=== PATIENT | male | born 1955 | race Caucasian/White ===

== ENCOUNTER 2018-01-24 13:08 | Emergency (ER) | payer OTHER, SELFPAY ==
[2018-01-24] VITALS (36 sets, daily range): BP systolic 110–153; BP diastolic 75–102; PULSE 83–108; RESP 8–32; TEMP 37; O2SAT 94–100
[2018-01-24 13:41] LABS: Abs Immature Grans 0.01 k/cumm (0.0-0.09); Absolute Basophil Count 0.02 k/cumm (0.0-0.2); Absolute Eosinophil Count 0.02 k/cumm (0.0-0.7); Absolute Lymphocyte Count 1.86 k/cumm (1.2-3.4); Absolute Neutrophil Count 4.68 k/cumm (1.2-6.7); Basophils % 0.3; Eosinophils % 0.3; HCT 43.2 % (40.0-50.0); HGB 15.8 g/dL (13.5-17.5); Immature Grans % 0.1; Lymphocytes % 25.5; Mean Corp. HGB Concentration 36.6 g/dL (32.0-36.0); Mean Corpuscular Hemoglobin 36.7 pg (27.0-33.0); Mean Corpuscular Volume 100.2 fL (80-95); Mean Platelet Volume 9.5 fL (8.0-11.0); Monocytes % 9.6; Neutrophils % 64.2; Platelet Count 220 x1000/uL (130-400); RBC 4.31 m/cumm (4.50-6.00); RBC Distribution Width 12.7 % (11.8-14.1); White Blood Cell Count 7.29 k/cumm (4.4-10.8)
--- NOTE | 2018-01-24 13:49 | DI.CT_ITS ---
SYMPTOMS/DIAGNOSIS: H/O PE/FACTOR V LEIDEN, ? PE PE CHEST CT: CT angiography was performed with multi slice acquisition and multi planar and 3D reconstruction. The study was conducted according to the usual protocol with an intravenous administration of 100 cc's of Omnipaque 350. There is no evidence of pulmonary embolic disease. There is no pulmonary infiltrate or mass or evidence of a hilar or mediastinal adenopathy. There are small regions of dependent atelectasis involving the lung bases. Apical pulmonary and pleural scarring is identified. There is no pleural effusion. The heart is not enlarged. There is no pericardial effusion. There is no evidence of an aortic aneurysm or dissection. No significant bony abnormality is demonstrated. SUMMARY: No evidence of pulmonary embolic disease. No evidence of acute cardiopulmonary disease.
[2018-01-24] MEDS: Acetaminophen 325 MG TAB 650 MG PO (13:56)
[2018-01-24 14:04] LABS: ALT 50 U/L (12-78); AST 61 U/L (15-37); Alkaline Phosphatase 75 U/L (46-116); Anion Gap 10.7 mmol/L (3-11); BUN 6 mg/dL (7-18); Bilirubin, Total 1.3 mg/dL (0.2-1.0); CO2 28.3 mmol/L (21.0-32.0); CREATININE 1.11 mg/dL (0.70-1.30); Calcium 8.8 mg/dL (8.5-10.1); Chloride 94 mmol/L (98-107); Glucose 108 mg/dL (70-100); Magnesium 1.5 mg/dL (1.8-2.4); Potassium 3.4 mmol/L (3.5-5.1); Sodium 133 mmol/L (136-145); Total Protein 7.6 g/dL (6.4-8.2)
[2018-01-24 14:06] LABS: Troponin I < 0.02 ng/mL (0.00-0.06)
[2018-01-24] MEDS: Omnipaque 350 MG/ML 100 ML BTL IJ (14:32)
--- NOTE | 2018-01-24 14:39 | ED.GENADUL_ITS ---
Discharge Plan Disposition Patient Disposition: HOME Condition: Good Discharge Details Chief Complaint: Chest Pain Clinical Impression: Atypical chest pain Primary Care Provider: Haydee Davidson ED Provider: Vijaya Lorenzo Home Meds and New Rx's Prescriptions: Continue furosemide [Lasix] 20 MG tablet 20 mg PO BID RF: 0 rosuvastatin [Crestor] 5 MG tablet 5 mg PO DAILY RF: 0 apixaban [Eliquis] 5 MG tablet 5 mg PO BID 30 Days RF: 0 Discharge Instructions Instructions: Chest Pain (ED) Additional Instructions: Follow-up with your scheduled cardiac stress test here on January 30. If you are able to obtain a stress test through the [place] you can do that instead. Follow-up with your primary care doctor in 1 week for reevaluation. Return to the emergency department any worsening or new concerning symptoms. Discharge Data Discharge Date/Time-TO BE ENTERED AT DEPARTURE: 01/24/18 17:30 Discharge Physician: Vijaya Lorenzo Medical Decision Making 62-year-old male with a history of pulmonary embolism on Eliquis who presents after encouragement from for bilateral lateral chest tightness and shortness of breath the past 2 days. Denies any anterior chest pain or tightness. Denies any shortness of breath at present. Vitals within normal limits. EKG notes a rate of 91, sinus, right bundle branch block, occasional PVCs, no acute ST elevation or depression, QTc 455, QRS 132. As he has no anterior chest pain or tightness, no associated symptoms, symptoms present for 2 days, and pain in his bilateral lateral chest, appears less likely cardiac, and more possible to be costochondritis, musculoskeletal. Considering patient's age and history, will do a cardiac workup, CT chest, and give a dose of Tylenol. Cannot give NSAIDs due to being on Eliquis. 1545 --patient is sitting in chair in room reading a magazine on reevaluation and appears in no acute distress. He denies any shortness of breath at present. Labs reviewed and note magnesium of 1.5. Magnesium repleted. Troponin negative. CT chest negative for PE. 1700 --second troponin negative. Patient relaxing reading magazine in no acute distress. He denies any pain at present. Pt scheduled for outpatient stress test for Jan.30. Patient states he also could follow-up with the [place] for this. He is instructed to f/u with his primary care doctor for plan of this and if unable he can obtain here. Instructed to return here with any concerns. HPI General Mode of arrival: ambulatory . Date/Time Provider Initiated Documentation: 01/24/18 13:32 . Limitations to Documentation: no limitations . Information obtained by: patient . HPI Narrative: Patient is a 62-year-old male who presents to the ED with a complaint of tightness on the sides of his chest and shortness of breath for the past 2 days. He states his tightness is intermittent and currently 3/10. He denies any shortness of breath at present. Patient has a history of DVT PE in 2012 and 2015 and was subsequently diagnosed with Factor V Leiden. He has been taking Eliquis since 2016. He admits to traveling recently in a car several weeks ago, and was immobile for approximately 3 hours but states he moved around frequently because of his history of dvt. Denies fever, nausea, vomiting, dizziness, leg pain or swelling, recent surgery. Past medical history: Pulmonary embolism, DVT Surgical history: Tonsillectomy, Vasectomy, Ganglion cystectomy Social history: Quit tobacco 3 years ago, Daily alcohol use, Daily marijuana use Meds: Eliquis, Lasix, Crestor Allergies: Sulfa [facility]CP: [facility] Related Data Home Medications Medication Instructions Recorded Confirmed apixaban [Eliquis] 5 mg PO BID 30 Days tablet 12/03/15 01/24/18 furosemide [Lasix] 20 mg PO BID tab-cap 10/02/17 01/24/18 rosuvastatin [Crestor] 5 mg PO DAILY tab-cap 10/02/17 01/24/18 Previous Rx's Medication Instructions Recorded apixaban [Eliquis] 5 mg PO BID 30 Days tablet 12/03/15 Allergies Allergy/AdvReac Type Severity Reaction Status Date / Time Sulfa (Sulfonamide Allergy Severe Unverified 10/02/17 09:51 Antibiotics) General Stated Complaint: Chest Pain NATASHA: 2 Review of Systems Review of Systems All systems reviewed & are unremarkable except as noted in HPI and below Constitutional Reports as per HPI, Denies chills and Denies fever(s) Eyes Denies blurry vision ENT Denies dizziness, Denies sore throat and Denies throat swelling Cardiovascular Reports chest pain (chest tightness) and Reports dyspnea Respiratory Reports dyspnea Gastrointestinal Denies abdominal pain, Denies diarrhea and Denies vomiting Genitourinary Denies hematuria and Denies dysuria Musculoskeletal Denies back pain and Denies numbness Integumentary/Breasts Denies lesions and Denies rash Neurologic Denies dizziness and Denies numbness Allergic/Immunologic Denies throat swelling PFSH Social History Smoking/Tobacco Use Status: Former Tobacco Use Exam Const General: cooperative and healthy appearing Orientation: alert and awake HENMT Head: normal to inspection Ears: hearing grossly normal bilaterally and external ears normal General nose exam: external nose normal Face and sinus: normal facial exam Mouth: oral mucosae normal Teeth and gingiva: dentition normal Throat: posterior oropharynx normal Eyes General: appearance normal, both eyes and all related structures Eyelids: eyelids normal Pupils: PERRL EOM: EOM intact bilaterally Neck Neck: normal visual inspection Lymphatic: no lymphadenopathy noted Chest Chest: normal inspection of the chest, normal palpation of entire chest wall and no tenderness Resp Effort & Inspection: normal respiratory effort and able to speak in complete sentences Auscultation: clear to auscultation bilaterally Cardio Rate: regular rate Rhythm: regular rhythm GI Inspection: normal to inspection Palpation: soft, not firm, no guarding, no hepatosplenomegaly, no masses and nontender Auscultation: normal bowel sounds Back/Spine/Pelvis Back: no CVA tenderness Skin General skin exam: no rashes or lesions noted Neuro General: alert and awake Cognition: normal cognition Speech: speech normal Gait: normal gait Motor: muscle tone normal throughout Sensory Exam: no sensory deficits noted Extrem General: normal to inspection, full ROM, normal capillary refill and no edema Psych Appearance: grossly normal Mental Status: mental status grossly normal Speech and Movement: speech and movement normal Affect: normal affect Thought Process: normal Course Vital Signs Respiratory Rate 21 01/24/18 13:10 Pulse Oximetry 100 01/24/18 13:10 Temperature 98.6 F 01/24/18 13:15 Temperature Source Temporal Artery Scan 01/24/18 13:15 Pulse 90 01/24/18 13:15 Pulse 97 H 01/24/18 13:20 Respiratory Rate 16 01/24/18 13:59 Respiratory Effort 01/24/18 13:59 Respiratory Depth Normal 01/24/18 13:59 Respiratory Pattern Normal 01/24/18 13:59 Blood Pressure 153/97 H 01/24/18 13:15 Blood Pressure Position Sitting 01/24/18 13:15 Pulse Oximetry 96 01/24/18 13:20 Oxygen Delivery Method Room Air 01/24/18 13:15 Oxygen Flow Rate 0 01/24/18 13:15 Pain Level 4 01/24/18 13:59 Lab/Test Results Lab/Test Results: Laboratory Tests Range/Units 01/24/18 01/24/18 13:20 13:20 WBC (4.4-10.8) k/cumm 7.29 RBC (4.50-6.00) m/cumm 4.31 L Hgb (13.5-17.5) g/dL 15.8 Hct (40.0-50.0) % 43.2 MCV (80-95) fL 100.2 H MCH (27.0-33.0) pg 36.7 H MCHC (32.0-36.0) g/dL 36.6 H RDW (11.8-14.1) % 12.7 Plt Count (130-400) x1000/uL 220 MPV (8.0-11.0) fL 9.5 Immature Gran % 0.1 Neutrophils % 64.2 Lymphocytes % 25.5 Monocytes % 9.6 Eosinophils % 0.3 Basophils % 0.3 Absolute Neutrophils (1.2-6.7) k/cumm 4.68 Absolute Lymphocytes (1.2-3.4) k/cumm 1.86 Absolute Monocytes (0.11-0.7) k/cumm 0.70 Absolute Eosinophils (0.0-0.7) k/cumm 0.02 Absolute Basophils (0.0-0.2) k/cumm 0.02 Sodium (136-145) mmol/L 133 L Potassium (3.5-5.1) mmol/L 3.4 L Chloride (98-107) mmol/L 94 L Carbon Dioxide (21.0-32.0) mmol/L 28.3 Anion Gap (3-11) mmol/L 10.7 BUN (7-18) mg/dL 6 L Creatinine (0.70-1.30) mg/dL 1.11 Estimated GFR/1.73 m2 (mL/min/1.73m2) >= 60.00 Glucose (70-100) mg/dL 108 H Calcium (8.5-10.1) mg/dL 8.8 Magnesium (1.8-2.4) mg/dL 1.5 L Total Bilirubin (0.2-1.0) mg/dL 1.3 H AST (15-37) U/L 61 H ALT (12-78) U/L 50 Alkaline Phosphatase (46-116) U/L 75 Troponin I (0.00-0.06) ng/mL < 0.02 Total Protein (6.4-8.2) g/dL 7.6 Albumin (3.4-5.0) g/dL 4.0
[2018-01-24] MEDS: MAGNESIUM SULFATE 1 GM/100 ML BAG IVPB (15:01)
[2018-01-24 16:32] LABS: Troponin I < 0.02 ng/mL (0.00-0.06)
== END 2018-01-24 17:30 | disposition home or self-care (01) ==
PROVIDERS: Emergency Provider Physician Assistant
DX: R07.89 Other chest pain (principal); F17.210 Nicotine dependence, cigarettes, uncomplicated
CPT/HCPCS: 36415; 71275; 80053; 93005; 96365; 99285; 83735; 84484; 85025; 93010; J3475; J3490

== ENCOUNTER 2018-06-12 00:57 | Outpatient (CLI) | payer OTHER, SELFPAY ==
--- NOTE | 2018-06-12 09:30 | MERGEMPI_ITS ---
*[facility]* *[facility]* [address] [place] [address] Myocardial Perfusion Imaging - SPECT Regadenoson Date of study: 06/12/2018 *PATIENT PRESENTATION* Height: 177.8cm (70in) Blood Pressure: Weight: 82.7kg (182lb) BSA: 2.03m^2 Referring physician: Michael Rodriguez Ordering physician: Haydee Davidson Impressions: - Normal stress test after pharmacologic stress. - Low irsk of cardiac events. Summary: 1. Myocardial perfusion imaging: No myocardial perfusion defects noted. 2. The calculated left ventricular ejection fraction after stress: 51%. LV global systolic function is normal. No left ventricular regional motion abnormality. 3. Baseline ECG: Normal sinus rhythm with right bundle branch block. Indication: R07.9, Appropriate Use Criteria: A (Appropriate). History: REASON FOR TESTING: PATIENT PRESENTED TO THE ER ON 01/24/2018 WITH COMPLAINT OF MIDSTERNAL CHEST TIGHTNESS AND SHORTNESS OF BREATH FOR 2 DAYS. HE DENIES CHEST PAIN UPON ARRIVAL TO TESTING TODAY. SIGNIFICANT PAST MEDICAL HISTORY: DVT'S, PE'S, FACTOR V LEIDEN. SMOKING STATUS: QUIT 2011. SMOKED FOR 40 YEARS 1 PPD. EXERCISE ROUTINE: WALKS 2 MILES PER DAY, FOUR TO FIVE TIMES PER WEEK. Risk factors: Family history of coronary artery disease. Dyslipidemia. Cholesterol: 292mg/dl. HDL: 58mg/dl. LDL: 211mg/dl. Triglycerides: 142mg/dl. ALLERGIES: SULFA. MEDICATIONS: ELIQUIS 5 MG DAILY, LASIX 20 MG BID, CRESTOR 2.5 MG DAILY. Imaging Technique: Protocol: Regadenoson. Acquisition: Gated SPECT; 1 day - rest/stress. The patient was imaged in the supine position. Attenuation correction used. Isotope administration: - Rest. Tc[99m]-sestamibi. Dose: 10.4mCi. Injection time: 09:10 AM. Injection to stress time: 00:45. - Stress. Tc[99m]-sestamibi. Dose: 32mCi. Injection time: 11:15 AM. 1-2 min before end of exercise Baseline ECG: SINUS RHYTHM. RBBB. HR 81 BPM. Normal sinus rhythm with right bundle branch block. Stress protocol: +-----+---+ + + !Stage!HR !BP (mmHg) !Comments ! +-----+---+ + + !1 min!100!130/82 (98)!Inject Regadenoson.! +-----+---+ + + !3 min!77 !122/80 (94)! ! +-----+---+ + + !6 min!75 !120/82 (95)! ! +-----+---+ + + * Stress results: STRESS TEST ENDED IN 7 MINUTES 48 SECONDS. NORMAL HEART RATE AND BLOOD PRESSURE RESPONSE TO LEXISCAN INJECTION. RARE PVC. NO ANGINA. NO SIGNIFICANT ST SEGMENT CHANGES. The rate-pressure product for the peak heart rate and blood pressure was 29970oh Hg/min. Myocardial perfusion: Imaging information: gated. Left ventricular size is normal. No myocardial perfusion defects noted. Ventricular Function (Wall Motion): The calculated left ventricular ejection fraction after stress: 51%. LV global systolic function is normal. No left ventricular regional motion abnormality. Study data: Michael Rodriguez MD supervised and was readily available during the procedure. This study was interpreted by [facility]. Study status: Routine. Consent: The risks, benefits, and alternatives to the procedure were explained to the patient and informed consent was obtained. Procedure: Initial setup. A baseline ECG was recorded. Surface ECG leads and manual cuff blood pressure measurements were monitored. Heart sounds: Normal. Lung sounds: Normal. Regadenoson stress test. Stress testing was performed, with regadenoson by intravenous bolus, for a total dose of 0.4mgover 10.00sec, followed by a 5ml saline flush. The infusion was terminated due to per protocol. Study completion: All catheters inserted during the procedure were removed. The patient tolerated the procedure well and was discharged from the lab. Discharge: The patient left the laboratory in stable condition. Birthdate: Patient birthdate: 1955. Sex: Gender: male. Study date: Study date: 06/12/2018. Study time: 00:01 AM. Signature Documentation: - The imaging portion of this study was interpreted by Nuclear Nutrition Technician Michael Rodriguez MD. - The Stress ECG portion of this study was interpreted by Michael Rodriguez MD. Electronically signed by Michael Rodriguez 06/12/2018 15:13
[2018-06-12] MEDS: Regadenoson 0.4 MG/5 ML SYR IVP (11:06)
== END 2018-06-12 01:17 ==
DX: R07.9 Chest pain, unspecified (principal); R06.02 Shortness of breath; E78.5 Hyperlipidemia, unspecified; Z87.891 Personal history of nicotine dependence; Z82.49 Family history of ischemic heart disease and other diseases of the circulatory system
CPT/HCPCS: 78452; 93017; J2785

== ENCOUNTER 2019-02-17 16:07 | Emergency (ER) | payer OTHER, SELFPAY ==
[2019-02-17 16:11] VITALS: BP 149/89; PULSE 94; RESP 18; TEMP 36.8; O2SAT 98
--- NOTE | 2019-02-17 16:27 | W.ED.GENAD ---
Discharge Plan Disposition Patient Disposition: HOME Condition: Fair Discharge Details Chief Complaint: GI Bleed Clinical Impression: Diverticulitis Primary Care Provider: Haydee Davidson ED Provider: Ofelia Palencia Home Meds and New Rx's Prescriptions: New metronidazole [Flagyl] 500 mg tablet 500 mg PO TID 7 Days Qty: 21 RF: 0 ciprofloxacin HCl [Cipro] 500 mg tablet 500 mg PO BID 7 Days Qty: 14 RF: 0 Continued furosemide [Lasix] 20 MG tablet 20 mg PO BID RF: 0 rosuvastatin [Crestor] 5 MG tablet 2.5 mg PO DAILY RF: 0 Eliquis 5 MG tablet 5 mg PO BID 30 Days RF: 0 Discharge Instructions Instructions: Ciprofloxacin (By mouth), Metronidazole (By mouth), Diverticulitis (ED), Diverticulitis Diet (ED) Additional Instructions: Encourage hydration. You may use Tylenol as needed for discomfort. Please take the antibiotics as prescribed. Even if symptoms improve, please take the entire course. Please follow-up with primary care in the next 48 hours for reevaluation. Do not drink alcohol while taking Flagyl. If you develop increased pain, fever/chills or other new/worsening symptoms please seek care urgently once again. Referrals: Haydee Davidson [Primary Care Provider] - Medical Decision Making Patient is 63-year-old male presenting today with hematochezia. Reports this began this morning and has subsequently had 3-4 bloody bowel movements since that time. He is endorsing lower abdominal pain, worse on the left side than the right. Denies any fevers or chills. No nausea or vomiting. Reports diminished appetite. Denies feeling lightheaded, weak. Has been hydrating today but otherwise no solid food intake. States that he had general stomach unwell over the weekend but denies any pain. No previous abdominal surgeries. No recent travel. Patient is anticoagulated on Eliquis for history of pulmonary emboli and factor V Leiden deficiency. On exam, patient is resting comfortably. No to be hypertensive at 149/89 with a heart rate of 94. He is afebrile. No pain is elicited on abdominal exam but patient does indicate a left lower quadrant area of discomfort. No peritoneal findings. Heme positive stool on AMARIS. Labs reviewed. H&H is stable. No leukocytosis. PT PTT normal. Potassium 3.2. I did discuss this with the patient but advised to do this with normal dietary intake. He has been low historically. Trace blood in the patient's UA. Discussed this with the patient. CT reviewed by radiologist: FINDINGS: Lungs: Bibasilar atelectasis. Liver: Two hypodense lesions in the left hepatic lobe likely represent benign cysts. Liver is otherwise unremarkable. Gallbladder and bile ducts: Normal gallbladder. No biliary ductal dilation. Pancreas: Normal pancreas. Spleen: Normal spleen. Adrenals: The adrenal glands are normal. Kidneys and ureters: Bilateral simple appearing renal cysts measuring up to 2 cm in the right kidney. Stomach and bowel: Sigmoid diverticula with surrounding fat stranding. No associated organized fluid collection. Normal stomach and small bowel Appendix: No evidence of appendicitis. Intraperitoneal space: No free air. Vasculature: Mild aortoiliac atherosclerotic calcification. Lymph nodes: Unremarkable. No enlarged lymph nodes. Bladder: Unremarkable as visualized. Reproductive: Enlarged prostate. Bones/joints: Mild degenerative changes of the thoracolumbar spine. No acute osseous abnormality. Soft tissues: Unremarkable. IMPRESSION: 1. Sigmoid diverticulitis. No associated organized fluid collection or free air. 2. No imaging evidence of active hemorrhage. Discussed this findings with the patient. He will be begun on Cipro and Flagyl. Advised against alcohol while taking the Flagyl. Encourage hydration. Patient is able to return with new or worsening symptoms. He will contact his primary tomorrow to schedule a follow-up appointment. He was given strict return precautions. All of his questions and concerns were addressed and he is in agreement this plan. HPI General Mode of arrival: ambulatory. Date/Time Provider Initiated Documentation: 02/17/19 16:16. Limitations to Documentation: no limitations. Information obtained by: patient and family (). HPI Narrative: Patient is a 63-year-old male, accompanied by his , with chief complaint of bright red blood per rectum. He reports that he awoke this morning and one soft bowel movement regimen did not notice blood in the stool. Subsequently, the patient had 3 other soft bowel movements that he states were very bloody. States that the stool was primarily made up of bright red blood. Endorsing lower abdominal pain, worse in the left than the right. Did not have any abdominal pain yesterday. However, he does report that he felt sick to my stomach all weekend. He denies nausea vomiting. No change bowel habits prior to today. Has not had diverticulitis historically. No previous abdominal surgeries. Patient is anticoagulated on Eliquis. History of factor V Leiden deficiency with multiple pulmonary emboli historically. He report that he did take his morning dose of Eliquis today. He has not had abdominal pain like this historically. Last colonoscopy was 3 years ago. Did not have any abnormalities noted at that time per patient report. Last PE was in 2016. Related Data Home Medications Medication Instructions Recorded Confirmed Eliquis 5 mg PO BID 30 Days tablet 12/03/15 02/17/19 furosemide [Lasix] 20 mg PO BID tab-cap 10/02/17 02/17/19 rosuvastatin [Crestor] 2.5 mg PO DAILY tab-cap 10/02/17 02/17/19 ciprofloxacin HCl [Cipro] 500 mg PO BID 7 Days #14 tab 02/17/19 metronidazole [Flagyl] 500 mg PO TID 7 Days #21 tab 02/17/19 Previous Rx's Medication Instructions Recorded Eliquis 5 mg PO BID 30 Days tablet 12/03/15 ciprofloxacin HCl [Cipro] 500 mg PO BID 7 Days #14 tab 02/17/19 metronidazole [Flagyl] 500 mg PO TID 7 Days #21 tab 02/17/19 Allergies Allergy/AdvReac Type Severity Reaction Status Date / Time Sulfa (Sulfonamide Allergy Severe Unverified 10/02/17 09:51 Antibiotics) General Stated Complaint: GI Bleed NATASHA: 2 Review of Systems Constitutional Constitutional: Reports as per HPI, Denies chills, Denies fatigue, Denies fever(s) and Denies headache(s) ENT Ears, Nose, Mouth, and Throat: Denies headache(s) Cardiovascular Cardiovascular: Reports as per HPI, Denies chest pain and Denies dyspnea Respiratory Respiratory: Reports as per HPI, Denies cough and Denies dyspnea Gastrointestinal Gastrointestinal: Reports as per HPI, Reports abdominal pain (LLQ), Denies melena, Reports hematochezia, Reports change in stool character, Denies nausea and Denies vomiting Genitourinary Genitourinary: Denies system reviewed and no additional complaints, except as docu (patient denies any change in urinary habits) Musculoskeletal Musculoskeletal: Reports as per HPI and Denies back pain Integumentary/Breasts Skin/Breast: Reports as per HPI and Denies rash Neurologic Neurologic: Reports as per HPI and Denies headache(s) Endocrine Endocrine: Denies fatigue Hematologic/Lymphatic Hematologic/Lymphatic: Denies easy bleeding and Denies easy bruising [facility] Social History Smoking/Tobacco Use Status: Former Tobacco Use Alcohol Intake: current Alcohol Intake frequency: 3 or more drinks per day Alcohol type: beer, wine and hard liquor Drug use: Daily Substance use type: marijuana Exam Const General: cooperative, healthy appearing, comfortable, no acute distress and well developed Nutritional Appearance: well nourished and overweight Orientation: alert and awake HENMT Head: normal to inspection Mouth: moist mucous membranes Resp Effort & Inspection: normal respiratory effort, able to speak in complete sentences and no respiratory distress Auscultation: clear to auscultation bilaterally, no rales, no rhonchi and no wheezes Cardio Rate: regular rate Rhythm: regular rhythm Heart Sounds: S1 normal and S2 normal GI Inspection: normal to inspection Palpation: soft, no hepatosplenomegaly, not firm, no guarding, no hernias, not rigid and nontender (indicates LLQ as area of pain but none elicited with palpation) Percussion: normal to percussion Auscultation: normal bowel sounds Rectal Exam: visual inspection normal, normal sphincter tone, prostate normal, No abnormal stool, No fecal impaction, No fissure, heme positive stool (no anita red blood noted) and No tenderness Back/Spine/Pelvis Back: no CVA tenderness Skin General skin exam: no rashes or lesions noted Trauma: no lacerations or abrasions Neuro General: alert and awake Cognition: normal cognition Speech: speech normal Gait: normal gait Psych Appearance: grossly normal and well kempt Mental Status: mental status grossly normal Speech and Movement: speech and movement normal Course Vital Signs Vital signs: Vital Signs Temperature 36.8 C 02/17/19 16:11 Pulse 94 H 02/17/19 16:11 Respiratory Rate 18 02/17/19 16:11 Blood Pressure 149/89 H 02/17/19 16:11 Pulse Oximetry 98 02/17/19 16:11 Temperature 36.8 C 02/17/19 16:11 Temperature Source Skin 02/17/19 16:11 Pulse 94 H 02/17/19 16:11 Respiratory Rate 18 02/17/19 16:11 Respiratory Effort Non-Labored 02/17/19 16:18 Blood Pressure 149/89 H 02/17/19 16:11 Blood Pressure Position Sitting 02/17/19 16:11 Pulse Oximetry 98 02/17/19 16:11 Oxygen Delivery Method Room Air 02/17/19 16:11 Oxygen Flow Rate 0 02/17/19 16:11 Pain Level 7 02/17/19 16:11
[2019-02-17] MEDS: Normal Saline 1,000 ML 1000 ML IV (16:54)
[2019-02-17] MEDS: Normal Saline Flush 10 ML SYR IVP (16:55)
--- NOTE | 2019-02-17 16:58 | DI.CT_ITS ---
EXAM: CT ABDOMEN PELVIS W CLINICAL HISTORY: lower abdominal pain with bright red blood per rec TECHNIQUE: Post IV and oral contrast. 100 cc's of Omnipaque 350 were utilized. FINDINGS: There are diverticular in the sigmoid colon with stranding in the surrounding fat, consistent with d iverticulitis. The more proximal colon is decompressed, without significant stool. Small bowel is unr emarkable. The appendix appears normal. There is no evidence of perforation, abscess or free air. The prostate is enlarged. The bladder is unremarkable. The lung bases appear clear. Heart size is normal . A cyst is noted at the upper aspect of the left lobe of the liver. The liver shows fatty infiltrati on. There is no biliary dilatation. The gallbladder, pancreas, spleen and adrenals are unremarkable. There are bilateral renal cysts. No hydronephrosis or urinary tract calculi are seen. Degenerative ch anges are noted in the spine and pelvis. IMPRESSION: Sigmoid diverticulitis. No evidence of abscess or perforation.
[2019-02-17 17:02] LABS: Abs Immature Grans 0.02 k/cumm (0.0-0.09); Absolute Basophil Count 0.02 k/cumm (0.0-0.2); Absolute Eosinophil Count 0.01 k/cumm (0.0-0.7); Absolute Lymphocyte Count 1.77 k/cumm (1.2-3.4); Absolute Monocyte Count 0.63 k/cumm (0.11-0.7); Absolute Neutrophil Count 7.13 k/cumm (1.2-6.7); Basophils % 0.2; Eosinophils % 0.1; HGB 14.8 g/dL (13.5-17.5); Immature Grans % 0.2; Lymphocytes % 18.5; Mean Corp. HGB Concentration 34.4 g/dL (32.0-36.0); Mean Corpuscular Hemoglobin 34.7 pg (27.0-33.0); Mean Corpuscular Volume 100.7 fL (80-95); Monocytes % 6.6; Neutrophils % 74.4; Platelet Count 242 x1000/uL (130-400); RBC 4.27 m/cumm (4.50-6.00); RBC Distribution Width 12.9 % (11.8-14.1); White Blood Cell Count 9.58 k/cumm (4.4-10.8)
[2019-02-17] MEDS: Breeza Beverage 473 ML BTL PO ×2 (17:07→17:08)
[2019-02-17] MEDS: Omnipaque 350 MG/ML 50 ML BTL PO (17:07)
[2019-02-17 17:13] LABS: ALT 27 U/L (16-63); AST 40 U/L (15-37); Alkaline Phosphatase 68 U/L (46-116); Anion Gap 14.3 mmol/L (3-11); BUN 8 mg/dL (7-18); Bilirubin, Total 0.3 mg/dL (0.2-1.0); CO2 25.7 mmol/L (21.0-32.0); CREATININE 1.08 mg/dL (0.70-1.30); Calcium 8.6 mg/dL (8.5-10.1); Chloride 98 mmol/L (98-107); Glucose 103 mg/dL (74-106); Potassium 3.2 mmol/L (3.5-5.1); Sodium 138 mmol/L (136-145); Total Protein 7.6 g/dL (6.4-8.2)
[2019-02-17 17:35] LABS: INR 1.1 (0.9-1.1); Prothrombin Time 10.8 sec (9.3-11.0)
[2019-02-17 17:44] LABS: Bilirubin Negative (Negative); Blood Trace-intact (Negative); Clarity Clear (Clear); Glucose Negative (Negative); Ketones Negative (Negative); Leukocyte Esterase Negative (Negative); Nitrite Negative (Negative); Specific Gravity <= 1.005 (1.005-1.025); Urobilinogen 0.2 EU/dL (Up TO 0.2)
[2019-02-17 17:59] LABS: Bacteria Negative HPF (Negative); C & S Indicated? No; Casts Negative LPF (Negative); Crystals Negative HPF (Negative); Epithelial Cells Rare HPF (Negative); Mucus Negative (Negative); WBC 0-2 HPF (0-5)
[2019-02-17] MEDS: Omnipaque 350 MG/ML 100 ML BTL IJ (19:02)
[2019-02-17 19:15] VITALS: BP 147/94; PULSE 103; RESP 18; O2SAT 96
--- NOTE | 2019-02-17 19:25 | DI.VRAD_ITS ---
PROCEDURE INFORMATION: Exam: CT Abdomen And Pelvis With Contrast Exam date and time: 02/17/2019 6:55 PM Age: 63 years old Clinical history: Other: Bleeding; Patient HX: Lower abd pain with bright red blood TECHNIQUE: Imaging protocol: Computed tomography of the abdomen and pelvis with intravenous contrast. Other contrast: Route: Oral; COMPARISON: No relevant prior studies available. FINDINGS: Lungs: Bibasilar atelectasis. Liver: Two hypodense lesions in the left hepatic lobe likely represent benign cysts. Liver is otherwise unremarkable. Gallbladder and bile ducts: Normal gallbladder. No biliary ductal dilation. Pancreas: Normal pancreas. Spleen: Normal spleen. Adrenals: The adrenal glands are normal. Kidneys and ureters: Bilateral simple appearing renal cysts measuring up to 2 cm in the right kidney. Stomach and bowel: Sigmoid diverticula with surrounding fat stranding. No associated organized fluid collection. Normal stomach and small bowel Appendix: No evidence of appendicitis. Intraperitoneal space: No free air. Vasculature: Mild aortoiliac atherosclerotic calcification. Lymph nodes: Unremarkable. No enlarged lymph nodes. Bladder: Unremarkable as visualized. Reproductive: Enlarged prostate. Bones/joints: Mild degenerative changes of the thoracolumbar spine. No acute osseous abnormality. Soft tissues: Unremarkable. IMPRESSION: 1. Sigmoid diverticulitis. No associated organized fluid collection or free air. 2. No imaging evidence of active hemorrhage. Dictated and Authenticated by: Frank Michael MD. Ordering:ALEXANDRA Gilbert MD
[2019-02-17] MEDS: Ciprofloxacin 500 MG TAB PO ×2 (20:02)
[2019-02-17] MEDS: metroNIDAZOLE 500 MG TAB PO ×2 (20:02)
[2019-02-17 20:21] VITALS: BP 148/100; PULSE 97; RESP 16; TEMP 37; O2SAT 100
== END 2019-02-17 20:20 | disposition home or self-care (01) ==
PROVIDERS: Emergency Provider Physician Assistant
DX: K57.33 Diverticulitis of large intestine without perforation or abscess with bleeding (principal); N28.1 Cyst of kidney, acquired
CPT/HCPCS: 36415; 80053; 86850; 86900; 86901; 96360; 96361; 99285; 74177; 81003; 81015; 85025; 85610; 85730; 99284; J3490; Q9967

== ENCOUNTER 2019-12-25 02:45 | Outpatient (CLI) | payer OTHER, SELFPAY ==
--- NOTE | 2019-12-25 | DI.US_ITS ---
EXAM: US ABDOMEN RENAL CLINICAL HISTORY: ASSESS RENAL AND HEPATIC CYSTS,[id number],CYSTIC DISEASE OF LIVER,Q446 TECHNIQUE: Ultrasound abdomen performed using standard protocol. COMPARISON: CT CT ABDOMEN PELVIS W from 02/17/2019 FINDINGS: LIVER: The liver is enlarged to 17.7 cm in length. There is moderate increased liver echogenicity an d decrease through transmission, consistent with hepatic steatosis. Two cysts are demonstrated in th e left lobe superiorly, measuring 1.5 cm and 9 millimeters. GALLBLADDER: No evidence of cholelithiasis. No evidence of wall thickening. No pericholecystic fluid identified. RDZ'S SIGN: Negative. BILIARY SYSTEM: No intrahepatic or extrahepatic biliary ductal dilation. KIDNEYS: Kidneys are symmetric in size. The right kidney measures 10.9 cm in length. The left kidne y measures 10.3 cm in length. No evidence of renal calculi. No evidence of hydronephrosis. A 2.3 kiley timeter cyst is seen in the mid right kidney. A 1.8 centimeter cyst is seen in the mid left kidney. No suspicious masses are seen. PANCREAS: SPLEEN: Not enlarged. ABDOMINAL AORTA AND IVC: Visualized portions normal caliber. ASCITES: None seen. Bladder: Prevoid volume 398 cc. Postvoid residual 133 cc. No bladder wall thickening, mass or calci fication. Both ureteral jets were visualized. The prostate volume measures 26 cc. IMPRESSION: Hepatic steatosis. Simple cysts of the liver and kidneys. Mildly enlarged prostate. Elevated postv oid residual. DATA REPOSITORY:
== END 2019-12-25 03:05 ==
PROVIDERS: Visit Provider Nurse Practitioner Family
DX: K76.0 Fatty (change of) liver, not elsewhere classified (principal); N28.1 Cyst of kidney, acquired; K76.89 Other specified diseases of liver; N40.0 Benign prostatic hyperplasia without lower urinary tract symptoms
CPT/HCPCS: 76770; 76700

== ENCOUNTER 2020-12-15 15:20 | Inpatient (IN) | payer OTHER, SELFPAY ==
[2020-12-15] VITALS (39 sets, daily range): BP systolic 126–149; BP diastolic 84–101; PULSE 79–103; RESP 10–26; TEMP 36.2–36.4; O2SAT 87–98
--- NOTE | 2020-12-15 15:30 | DI.CT_ITS ---
Exam(s) CT ABDOMEN PELVIS W EXAM: CT ABDOMEN PELVIS W CLINICAL HISTORY: ABD PAIN, MOST @ LEFT, N/V. TECHNIQUE: Imaging Protocol: Axial computed tomography images with coronal and sagittal reformatted images were created and reviewed CONTRAST MATERIAL: Intravenous: Omnipaque 100cc Oral: None COMPARISON: CT CT ABDOMEN PELVIS W from 02/17/2019 FINDINGS: VISUALIZED LUNG BASES: Dependent markings in both lung bases, more so on the right side, unchanged. No pleural effusions.. ABDOMEN: There is no ascites. LIVER: There are 2 adjacent benign cysts in the left hepatic lobe again noted, and there is a tiny 3 millimeter cyst in the right hepatic lobe noted. Intrahepatic ducts are not dilated. GALLBLADDER/BILIARY: phyryngian cap noted CBD is not dilated. PANCREAS: There is no abundant streaking around the pancreas consistent with acute pancreatitis. Sprague creatic duct is not dilated. The intrapancreatic CBD is not dilated but there is a increase in paren chymal calcifications within the pancreatic head. There is peripancreatic fluid extending around the duodenum. There is no evidence of pseudoaneurysm of the gastroduodenal artery. SPLEEN: Spleen is not enlarged. No obvious intrasplenic lesions. No thrombosis of the splenic and p ortal veins. Superior mesenteric vein is also patent. ADRENALS: There are no significant adrenal masses. KIDNEYS:There is cysts in both kidneys. Largest cyst in the right kidney measures 3.2 by 2.4 cm. La rgest cyst in the left kidney measures 1.8 x 1.6 cm. No solid renal masses. No calculi. No hydrone phrosis. There is a small cyst off the inferior medial left kidney which measures 11 x 10 millimeter s. This contains a single tiny mural calcification.. ABDOMINAL AORTA: Abdominal aortic diameter upper normal. Mild arterial megaly of the common iliac ar teries. No large aneurysms. Mild arterial megaly of the external iliac arteries. No aneurysms. LYMPH NODES:There is no retroperitoneal nor paraaortic adenopathy. ABDOMINAL WALL: There is a fat containing umbilical anterior abdominal wall hernia. This appears sim ilar size to the previous but contains a small amount of fluid therein. No bowel loops. GI: There is no evidence of bowel obstruction, free air, nor abscess. Sigmoid diverticulosis without evidence of acute diverticulitis. PELVIS: GI: No evidence of appendicitis.No evidence of sigmoid diverticulitis. LYMPH NODES: There is no intrapelvic nor inguinal adenopathy. REPRODUCTIVE: Prostate gland is enlarged,. No obturator adenopathy. Seminal vesicles unremarkable. URINARY BLADDER: Urinary bladder wall is uniformly thickened but the bladder is not distended. No ob vious mass nor calculi therein. OSSEOUS: No significant osseous lesions. Partial ankylosis of the SI joints. IMPRESSION: 1. Compared to the prior CT scan of January 2019, the main finding at present is acute pancreatitis with abundant peripancreatic streaking. Pancreatic duct is not dilated. No obvious pancreatic mass although there is increasing parenchymal calcification in the pancreatic head noted, some of this clyde se to the intrahepatic CBD. Cannot exclude possibility that at least 1 of these may be a calculus in the lower CBD. Recommend MRCP. 2. Extensive sigmoid diverticulosis. No obvious acute diverticulitis (as was previously present in 2018). 3. No appendicitis. 4. Enlarged prostate gland. Nondistended urinary bladder. Benign cysts in both kidneys but no hydro nephrosis. Cysts in the liver as described above, slightly increased in size from the prior study. Small fat containing umbilical hernia. However there is a small amount of fluid in the a bili cul he rnia which was not evident on the prior January 2019 study. There are no bowel loops within the her lovely sac and no evidence of bowel obstruction. This study 1st read by [facility]. Final report called by myself to the hospitalist Sunday12/15/2020 at 8:30 p.m. RADIATION DOSE DELIVERED: 1,046.22mGy.cm Total DLP DATA REPOSITORY: All CT scans at this facility are submitted to the National Radiology Data Registry (NRDR) Dose Index Registry (DIR) with the [employer] (A[employer]). RADIATION OPTIMIZATION: All CT scans at this facility use at least one of these dose optimization te chniques: automated exposure control; mA and/or kV adjustment per patient size (includes targeted exa ms where dose is matched to clinical indication); or iterative reconstruction.
--- NOTE | 2020-12-15 15:30 | RT.EKG_ITS ---
APPROVED REPORT Exam: Resting ECG Reason for Exam: aBD PAIN Patient Location: E HR:61 bpm ECG Measurements Heart Rate 61 AXIS AZ 170 P 49 QRSd 137 QRS 5 QT 445 T 20 QTc 449 Conclusion Sinus rhythm...normal P axis, V-rate 60- 99 Right bundle branch block...QRSd>120, terminal axis(90,270)
--- NOTE | 2020-12-15 15:40 | ED.GENADUL_ITS ---
Discharge Plan Disposition Patient Disposition: HOME Condition: Improving Discharge Details Chief Complaint: Abd Prob Clinical Impression: Acute pancreatitis Primary Care Provider: Haydee Davidson ED Provider: Mic Valdovinos Home Meds and New Rx's Prescriptions: No Action Eliquis 2.5 mg tablet 2.5 mg PO BID RF: 0 tamsulosin [Flomax] 0.4 mg capsule 0.4 mg PO DAILY Qty: 90 RF: 3 furosemide [Lasix] 20 MG tablet 20 mg PO BID RF: 0 tiotropium bromide 2.5 mcg/actuation mist 2 puff inhalation DAILY RF: 0 rosuvastatin [Crestor] 5 mg tablet 5 mg PO DAILY RF: 0 Medical Decision Making 65-year-old male with onset of abdominal pain approximately 10 AM. Given nausea and then with diffuse anterior abdominal discomfort that is worse with movement and feels like previous diverticulitis. He has otherwise been well. Arrives with blood pressure 149/101 diaphoretic and in some distress with abdominal . And mild rebound tenderness. Differential diagnosis includes bowel obstruction, diverticulitis, pancreatitis, atypical renal colic. Patient IV access established, fluids initiated, given antiemetic and analgesic. Diagnostics: White count of 11, hemoglobin 16, platelets 222. Lactic acid 1.6. Chemistries unremarkable with BUN 9, creatinine 1.3. Total bili is 1.1, AST 47, ALT 44, lipase greater than 15,000. CT images reveals peripancreatic inflammatory changes consistent with acute pancreatitis. No bile duct dilatation. He does have ongoing pain, will require admission for parenteral fluids and analgesia. Discussed plan of care with patient and his , his COVID-19 test is negative and he is appropriate for admission this time. HPI General Mode of arrival: ambulatory . Date/Time Provider Initiated Documentation: 12/15/20 15:21 . Limitations to Documentation: no limitations . Information obtained by: patient . History of Present Illness 65 year old M presents to the emergency department with the chief complaint of Abdominal pain since morning, described as moderate and severe, Quality is described as dull and constant, and is localized to the abdomen. Patient reports no radiation. Patient started experiencing this hour(s) and it has been constant. No relieving factors improve symptom(s), Movement worsens symptoms . Patient notes loss of appetite and nausea/vomiting; denies cough, fever/chills and shortness of breath. Patient did receive the following treatments prior to arrival, none Related Data Home Medications Medication Instructions Recorded Confirmed furosemide [Lasix] 20 mg PO BID tab-cap 10/02/17 12/15/20 tiotropium bromide 2.5 2 puff INHALATION DAILY 01/28/20 12/15/20 mcg/actuation mist for inhalation apixaban 2.5 mg tablet 2.5 mg PO BID 04/01/20 12/15/20 rosuvastatin 5 mg tablet 5 mg PO DAILY tab-cap 04/01/20 12/15/20 tamsulosin 0.4 mg capsule 0.4 mg PO DAILY #90 cap 04/01/20 12/15/20 Previous Rx's Medication Instructions Recorded tamsulosin 0.4 mg capsule 0.4 mg PO DAILY #90 cap 04/01/20 Allergies Allergy/AdvReac Type Severity Reaction Status Date / Time Sulfa (Sulfonamide Allergy Severe Unverified 12/15/20 15:27 Antibiotics) General Stated Complaint: Abd Prob NATASHA: 3 Review of Systems Narrative: Immunized against COVID-19, no fever, feels like previous diverticulitis. Taking medications as prescribed. 8 systems reviewed and otherwise negative [facility] Medical History Essential hypertension Macrocytic anemia Pulmonary embolism Pulmonary emphysema Smoker Social History Smoking/Tobacco Use Status: Former Tobacco Use Smoking risk assessment performed?: Yes Alcohol Intake: current Alcohol Intake frequency: 3 or more drinks per day Alcohol type: beer, wine and hard liquor Drug use: Daily Substance use type: marijuana Do you feel safe at home: Yes Do you feel safe in your relationship?: Yes Exam Narrative Exam Narrative: GEN: awake, alert, oriented 3. Diaphoretic, interactive. HEAD: Normocephalic, atraumatic ENT: Mucous membranes moist, oropharynx unremarkable, External ear exam unremarkable EYES: PERRL, EOMI NECK: Full ROM, no SHAYY, no menigismus CHEST/RESP: Nontender, clear to auscultation bilateral, no wheeze/rhonchi/rales CARDIOVASCULAR: RRR, no murmur, rub delbert. 2+ Rad pulse bilateral ABDOMEN: Soft, absent bowel sounds, diffusely tender, with rebound present. EXT: Full ROM, no edema, no rash Neuro: Grossly normal neurologic exam, conversant, interactive. Psych: Speech fluent, thoughts congruent, affect normal Course Vital Signs Vital signs: Vital Signs Temperature 36.4 C L 12/15/20 15:24 Pulse 94 H 12/15/20 15:24 Respiratory Rate 18 12/15/20 15:24 Blood Pressure 149/101 H 12/15/20 15:24 Pulse Oximetry 98 12/15/20 15:24 Temperature 36.4 C L 12/15/20 15:24 Temperature Source Temporal Artery Scan 12/15/20 15:24 Pulse 94 H 12/15/20 15:24 Respiratory Rate 18 12/15/20 15:24 Respiratory Effort Non-Labored 12/15/20 15:29 Blood Pressure 149/101 H 12/15/20 15:24 Blood Pressure Position Sitting 12/15/20 15:24 Pulse Oximetry 98 12/15/20 15:24 Oxygen Delivery Method Room Air 12/15/20 15:24 Oxygen Flow Rate 0 12/15/20 15:24 Pain Level 10 12/15/20 15:24
[2020-12-15 15:47] LABS: Lactate 1.6 mmol/L (0.6-1.4)
[2020-12-15 15:54] LABS: Abs Immature Grans 0.02 10^3/uL (0.0-0.06); Absolute Basophil Count 0.03 10^3/uL (0.0-0.2); Absolute Eosinophil Count 0.01 10^3/uL (0.0-0.7); Absolute Monocyte Count 0.72 10^3/uL (0.1-0.8); Absolute Neutrophil Count 8.61 10^3/uL (1.2-6.7); Basophils % 0.3; Eosinophils % 0.1; HCT 47.4 % (40.0-50.0); HGB 16.4 g/dL (13.5-17.5); Immature Grans % 0.2; Lymphocytes % 15.3; MCH 34.5 pg (27.0-33.0); MCHC 34.6 % (32.0-36.0); MCV 99.6 fL (80-95); MPV 8.8 fL (8.0-11.0); Monocytes % 6.5; Neutrophils % 77.6; Nucleated RBC 0 %; Platelet Count 222 10^3/uL (130-400); RBC 4.76 10^6/uL (4.36-5.78); RDW 12.8 % (11.8-14.1); RDW-SD 47.7 fL; WBC 11.09 10^3/uL (4.4-10.8)
[2020-12-15] MEDS: Ondansetron 4 MG/2 ML VIAL IVP (15:55)
[2020-12-15] MEDS: HYDROmorphone 2 MG/ML VIAL 1 MG IVP ×4 (15:55→21:25)
[2020-12-15] MEDS: Normal Saline Flush 10 ML SYR IVP ×4 (15:55→21:25)
[2020-12-15] MEDS: Normal Saline 1,000 ML 1000 ML IV (15:56)
[2020-12-15 16:04] LABS: ALT 44 U/L (16-63); AST 47 U/L (15-37); Albumin 4.2 g/dL (3.4-5.0); Alkaline Phosphatase 69 U/L (46-116); Anion Gap 9.7 mmol/L (3-11); BUN 9 mg/dL (7-18); Bilirubin, Total 1.1 mg/dL (0.2-1.0); CO2 29.3 mmol/L (21.0-32.0); CREATININE 1.3 mg/dL (0.70-1.30); Calcium 8.9 mg/dL (8.5-10.1); Chloride 101 mmol/L (98-107); Glucose 134 mg/dL (74-106); Magnesium 2.1 mg/dL (1.8-2.4); Potassium 3.8 mmol/L (3.5-5.1); Sodium 140 mmol/L (136-145); Total Protein 8.1 g/dL (6.4-8.2)
[2020-12-15 16:18] LABS: Lipase > 15000 U/L (73-393)
[2020-12-15 16:23] LABS: Source Nasal/Nares
[2020-12-15 16:42] LABS: PTT Activated 22.8 sec (21.0-27.5); Prothrombin Time 10.4 sec (9.3-11.0)
--- NOTE | 2020-12-15 17:57 | DI.VRAD_ITS ---
PROCEDURE INFORMATION: Exam: CT Abdomen And Pelvis With Contrast Exam date and time: 12/15/2020 3:40 PM Age: 65 years old Clinical indication: Abdominal tenderness and fever TECHNIQUE: Imaging protocol: Computed tomography of the abdomen and pelvis with contrast. Radiation optimization: All CT scans at this facility use at least one of these dose optimization techniques: automated exposure control; mA and/or kV adjustment per patient size (includes targeted exams where dose is matched to clinical indication); or iterative reconstruction. Contrast material: L [id number]; Contrast volume: 100 ml; Contrast route: INTRAVENOUS (IV); COMPARISON: CT ABDOMEN PELVIS W 02/17/2019 6:57 PM FINDINGS: Liver: There are 2 cysts within the left hepatic lobe which have increased somewhat in size since the prior exam. The now measuring 1.7 cm in diameter. There is a 4 mm cyst within the right hepatic lobe. Gallbladder and bile ducts: Normal. No calcified stones. No ductal dilation. Pancreas: There are extensive peripancreatic inflammatory changes which are new since the prior study. No discrete pancreatic abscess or cyst formation is noted. Spleen: Normal. No splenomegaly. Adrenal glands: Normal. No mass. Kidneys and ureters: Bilateral simple renal cysts are present with the largest cyst on the right measuring up to 3.0 cm in diameter. Stomach and bowel: Diverticulosis of the colon is present. Appendix: The appendix is well-visualized and appears normal. Intraperitoneal space: Unremarkable. No free air. No significant fluid collection. Vasculature: Unremarkable. No abdominal aortic aneurysm. Lymph nodes: Unremarkable. No enlarged lymph nodes. Urinary bladder: Unremarkable as visualized. Reproductive: The prostate appears enlarged measuring 5.9 cm in transverse diameter. Bones/joints: Unremarkable. No acute fracture. Soft tissues: There is a small fat containing umbilical hernia. IMPRESSION: 1. Peripancreatic inflammatory changes consistent with acute pancreatitis. The CT severity index is a 3 (mild). 2. Interval increase in size of cysts of the left hepatic lobe now measuring up to 1.7 cm in diameter. 3. Bilateral simple renal cysts. 4. Diverticulosis. 5. Large prostate. 6. Small fat containing umbilical hernia. Dictated and Authenticated by: Chintan Garduno MD. Ordering:CORAZON Haile MD
[2020-12-15 18:01] LABS: COVID-19 PCR Negative (Negative)
[2020-12-15] MEDS: Lactated Ringers 1,000 ML 150 ML IV (18:44)
[2020-12-15] MEDS: Omnipaque 350 MG/ML 100 ML BTL IJ (19:21)
--- NOTE | 2020-12-15 19:22 | HPE_ITS ---
Date of service: 12/15/20 Time of Service: : Assessment and Plan Assessment and plan (1) Acute pancreatitis: Status: Acute Assessment and plan: He will be admitted to the hospital and treated with intravenous fluids. I will try him on clear fluids to see if he tolerates this. We will give him analgesics and anxiolytics as needed. He will be given ondansetron as needed for nausea and vomiting. I suspect his pancreatitis is due to his alcohol consumption. (2) Alcohol abuse: Status: Chronic Assessment and plan: He will be monitored for alcohol withdrawal. History of Present Illness History of Present Illness Chief Complaint: Nausea, vomiting and abdominal pain Narrative: This 65-year-old male developed about 10:00 this morning nausea and vomiting. He vomited 2 or 3 times and then developed epigastric abdominal pain. The pain is now moved some to the right side of his abdomen. He has had no prior history of this pain although he did receive treatment for diverticulitis almost 2 years ago. Because of persistent pain he came to the emergency de partment. He was found to have a lipase greater than 15,[address] scan consistent with pancreatitis. He did not try to take anything at home for the pain or nausea. He does not have a history of pancreatitis in the past. He drinks 3-4 drinks of alcohol per day. He drinks beer or vodka or wine sometimes Seagrams 7. Occasional he drinks more than 3-4 drinks. He stopped drinking when he had the episode of diverticulitis 2 years ago and did not have any withdrawal by his history. He has not been around anyone's been sick. He has been immunized for coronavirus. Is not been traveling. He does have a history of chronic anticoagulation because of a Leiden deficiency. He has had 2 pulm onary embolism episodes in the past. He also has benign prostatic hypertrophy. He quit smoking cigarettes about 6 or 7 years ago but uses marijuana daily at night to help him sleep. He was planning to retire next week. 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 Review of Systems Constitutional Constitutional: Denies chills and Denies fever(s) Cardiovascular Cardiovascular: Denies chest pain, Denies rapid heart rate and Denies dyspnea Respiratory Respiratory: Denies cough and Denies dyspnea Gastrointestinal Gastrointestinal: Reports abdominal pain, Denies diarrhea, Reports nausea, Reports vomiting and Denies hematemesis Genitourinary Genitourinary: Denies hematuria, Reports difficulty urinating, Reports nocturia and Reports urinary frequency Comments: Slow urinary stream PFSH Medical History Essential hypertension Macrocytic anemia Pulmonary embolism Pulmonary emphysema Smoker Social History Smoking/Tobacco Use Status: Former Tobacco Use Smoking risk assessment performed?: Yes Alcohol Intake: current Alcohol Intake frequency: 3 or more drinks per day Alcohol type: beer, wine and hard liquor Drug use: Daily Substance use type: marijuana Do you feel safe at home: Yes Do you feel safe in your relationship?: Yes Meds Allergies and Home Medications Allergies Allergy/AdvReac Type Severity Reaction Status Date / Time Sulfa (Sulfonamide Allergy Severe Unverified 12/15/20 15:27 Antibiotics) Home Medications Medication Instructions Recorded Confirmed Type furosemide [Lasix] 20 mg PO BID tab-cap 10/02/17 12/15/20 History tiotropium bromide 2.5 2 puff INHALATION DAILY 01/28/20 12/15/20 History mcg/actuation mist for inhalation apixaban 2.5 mg tablet 2.5 mg PO BID 04/01/20 12/15/20 History rosuvastatin 5 mg tablet 5 mg PO DAILY tab-cap 04/01/20 12/15/20 History tamsulosin 0.4 mg capsule 0.4 mg PO DAILY #90 cap 04/01/20 12/15/20 Rx Exam Const General: cooperative, no acute distress, well developed and well groomed Orientation: alert, awake and oriented x3 Other: He is diaphoretic Neck Neck: normal visual inspection and no lymphadenopathy Thyroid: thyroid normal Resp Effort & Inspection: normal respiratory effort and able to speak in complete sentences Auscultation: no rales, no rhonchi and no wheezes Cardio Rate: regular rate Rhythm: regular rhythm Heart Sounds: S1 normal, S2 normal, no click, no gallops and no murmurs GI Palpation: soft, no hepatosplenomegaly, not firm, no masses and tender (Epigastric) Skin General skin exam: no rashes or lesions noted Extrem General: no calf tenderness and no edema Results Labs Result diagrams: 12/15/20 15:40 12/15/20 15:40 Labs: Laboratory Results - last 24 hr 12/15/20 12/15/20 12/15/20 15:40 15:40 15:40 WBC 11.09 H RBC 4.76 Hgb 16.4 Hct 47.4 MCV 99.6 H MCH 34.5 H MCHC 34.6 RDW 12.8 Plt Count 222 MPV 8.8 Immature Gran % 0.2 Neutrophils % 77.6 Lymphocytes % 15.3 Monocytes % 6.5 Eosinophils % 0.1 Basophils % 0.3 Nucleated RBC % 0 Absolute Neutrophils 8.61 H Absolute Lymphocytes 1.70 Absolute Monocytes 0.72 Absolute Eosinophils 0.01 Absolute Basophils 0.03 PT INR APTT VBG Lactate 1.6 H Sodium 140 Potassium 3.8 Chloride 101 Carbon Dioxide 29.3 Anion Gap 9.7 BUN 9 Creatinine 1.3 Estimated GFR/1.73 m2 55.40 Glucose 134 H Calcium 8.9 Magnesium 2.1 Total Bilirubin 1.1 H AST 47 H ALT 44 Alkaline Phosphatase 69 Total Protein 8.1 Albumin 4.2 Lipase > 69428 H COVID-19 Source SARS-CoV-2 (PCR) 12/15/20 12/15/20 15:40 16:15 WBC RBC Hgb Hct MCV MCH MCHC RDW Plt Count MPV Immature Gran % Neutrophils % Lymphocytes % Monocytes % Eosinophils % Basophils % Nucleated RBC % Absolute Neutrophils Absolute Lymphocytes Absolute Monocytes Absolute Eosinophils Absolute Basophils PT 10.4 INR 1.0 APTT 22.8 VBG Lactate Sodium Potassium Chloride Carbon Dioxide Anion Gap BUN Creatinine Estimated GFR/1.73 m2 Glucose Calcium Magnesium Total Bilirubin AST ALT Alkaline Phosphatase Total Protein Albumin Lipase COVID-19 Source Nasal/Nares SARS-CoV-2 (PCR) Negative Last Vital Signs Temp 36.4 C L 12/15/20 15:24 Pulse 87 12/15/20 17:00 Resp 21 12/15/20 17:01 BP 133/84 12/15/20 17:00 Pulse Ox 92 12/15/20 17:01
[2020-12-15] MEDS: Tamsulosin 0.4 MG CAPCR PO (21:23)
[2020-12-16] VITALS (8 sets, daily range): BP systolic 119–153; BP diastolic 72–93; PULSE 86–109; RESP 16–22; TEMP 36.2–38.4; O2SAT 91–94
--- NOTE | 2020-12-16 | DI.MRI_ITS ---
Exam(s) MR ABDOMEN WO EXAM: MR ABDOMEN WO CLINICAL HISTORY: MRCP study for acute pancreatitis - ?choledocholit TECHNIQUE: Multiplanar multisequence noninfused MRI was performed. MRCP also performed. COMPARISON: CT CT ABDOMEN PELVIS W from 12/15/2020 FINDINGS: VISUALIZED LUNG BASES: Small pleural effusions. Small amount of ascites noted perihepatic and perisplenic LIVER: Steatosis. Two adjacent benign cysts in the left hepatic lobe noted. Another tiny cyst in le ft hepatic lobe noted and there is a tiny cyst in the right hepatic lobe also evident measuring 4 mil limeters. Also another tiny subcapsular cyst in the right hepatic lobe measuring 3 millimeters. BILIARY: There is no obvious gallbladder pathology. No gallstones noted. No gallbladder wall edema. Flow fluid around the gallbladder is related to the pancreatitis. CBD is not dilated PANCREAS: Pancreatitis. The pancreatic duct is not dilated. Peripancreatic fluid but no formed pseu docyst. No obvious pancreatic head mass. Previously described parenchymal calcifications in the acosta creatic head are not easily seen on MRI due to signal dropout and are more readily seen on CT scan. MRCP:CBD is not dilated. No obvious calculus in the CBD. SPLEEN: Spleen is not enlarged and there are no intrasplenic lesions. ADRENALS: No significant adrenal masses. KIDNEYS: Benign cysts noted in both kidneys.No solid lesions. No hydronephrosis. ABDOMINAL AORTA: Not enlarged and there is no significant para-aortic adenopathy. ANTERIOR ABDOMINAL WALL/GI: There is no evidence of significant anterior abdominal wall hernia in the field of view of this study.Is no evidence of obvious bowel obstruction. OSSEOUS: There are no lytic osseous lesions in the field of view of this study. IMPRESSION: 1. Findings are consistent with pancreatitis. Pancreatic duct is upper normal. There is no obvious mass in the pancreatic head. Calcifications described in the pancreatic head on the recent CT scan a re not evident with in the nondilated CBD. Both the CBD and intrahepatic ducts are not dilated. The refore these are most probably just independent increasing pancreatic head parenchymal calcifications . 2. Hepatic steatosis. Benign cyst in the liver again noted. Also benign cysts in both kidneys. No solid renal masses. No hydronephrosis. 3. Mild ascites. Small pleural effusions DATA REPOSITORY:
[2020-12-16] MEDS: Lactated Ringers 1,000 ML 150 ML IV ×4 (01:05→22:13)
[2020-12-16] MEDS: HYDROmorphone 2 MG/ML VIAL 1 MG IVP ×3 (06:44→20:39)
[2020-12-16] MEDS: Normal Saline Flush 10 ML SYR IVP ×5 (06:45→21:10)
[2020-12-16] MEDS: Ondansetron 4 MG/2 ML VIAL IVP (06:52)
[2020-12-16] MEDS: LORazepam 2 MG/ML VIAL 1 MG IVP ×2 (06:53→12:06)
[2020-12-16 07:24] LABS: Abs Immature Grans 0.05 10^3/uL (0.0-0.06); Absolute Basophil Count 0.01 10^3/uL (0.0-0.2); Absolute Eosinophil Count 0.01 10^3/uL (0.0-0.7); Absolute Monocyte Count 0.72 10^3/uL (0.1-0.8); Absolute Neutrophil Count 8.82 10^3/uL (1.2-6.7); Basophils % 0.1; Eosinophils % 0.1; HCT 42.6 % (40.0-50.0); HGB 14.7 g/dL (13.5-17.5); Immature Grans % 0.5; Lymphocytes % 7.7; MCH 34.2 pg (27.0-33.0); MCHC 34.5 % (32.0-36.0); MCV 99.1 fL (80-95); MPV 9.1 fL (8.0-11.0); Monocytes % 6.9; Neutrophils % 84.7; Nucleated RBC 0 %; Platelet Count 180 10^3/uL (130-400); RDW 12.9 % (11.8-14.1); RDW-SD 46.9 fL; WBC 10.41 10^3/uL (4.4-10.8)
[2020-12-16 07:37] LABS: Magnesium 1.9 mg/dL (1.8-2.4)
[2020-12-16 07:48] LABS: Lipase 10732 U/L (73-393)
[2020-12-16 08:42] LABS: ALT 30 U/L (16-63); AST 19 U/L (15-37); Albumin 3.3 g/dL (3.4-5.0); Alkaline Phosphatase 50 U/L (46-116); Bilirubin, Direct 0.3 mg/dL (0.0-0.2); Total Protein 6.4 g/dL (6.4-8.2)
[2020-12-16] MEDS: Thiamine 100 MG TAB PO (09:48)
[2020-12-16] MEDS: Apixaban 2.5 MG TAB PO ×2 (09:48→20:38)
[2020-12-16] MEDS: Folic Acid 1 MG TAB PO (09:48)
[2020-12-16] MEDS: Multivitamin TAB 1 TAB PO (09:48)
--- NOTE | 2020-12-16 10:40 | NUR.NOTE ---
Nursing Note: At 1040 on 12/16/20, this RN returned a call from the pt.'s , Paige. RN updated pt.'s regarding pt.'s mentation, VS, pain level, head to toe assessment, plan of care, etc. Pt.'s verbalized understanding and presented with a few questions that were answered. RN will reassess as necessary.
[2020-12-16 14:27] LABS: Bilirubin Small (Negative); Blood Moderate (Negative); Clarity Clear (Clear); Glucose Negative (Negative); Ketones 15 mg/dL (Negative); Leukocyte Esterase Negative (Negative); Nitrite Negative (Negative); Specific Gravity >= 1.030 (1.005-1.025); Urobilinogen 0.2 EU/dL (Up TO 0.2)
[2020-12-16 14:45] LABS: Bacteria Negative HPF (Negative); Casts 3-5 Hyaline LPF (Negative); Crystals Negative HPF (Negative); Epithelial Cells Few HPF (Negative); Mucus Trace (Negative); WBC Negative HPF (0-5)
[2020-12-16 14:46] LABS: C & S Indicated? No
--- NOTE | 2020-12-16 15:46 | W.PM.PROGNOT ---
Date of Service Date of service: 12/16/20 Time of Service: 15:46 Assessment and Plan Assessment and plan (1) Acute pancreatitis: Status: Acute Assessment and plan: Continue IVF for the first 48 hrs. Tolerating clears. Await MRCP. Check triglyceride level. IS. Bowel regimen. (2) Alcohol abuse: Status: Chronic Assessment and plan: Add vitamins/thiamine. Monitor on CIWA with prn lorazepam. Symptoms are controlled at this time. (3) Macrocytosis: Status: Acute Assessment and plan: Check B12/folate levels (4) H/O factor V Leiden mutation: Status: Chronic Assessment and plan: Continue home anticoagulation (patient refuses lovenox; eliquis resumed). (5) Discharge planning issues: Status: Acute Assessment and plan: on eliquis. Subjective Subjective Interval history since last seen: The patient states he feels weak. Pain 4/10 when I came to see the patient. He was not able to sleep with his level of pain yesterday. Denies dizziness, chest pain, does feel like he is not taking deep breaths due to the abdominal pain. Denies n/v. Says he was insulted by seizure pads and would like not to use them. He does not think he will withdraw from alcohol. His CIWA score was 12 yesterday evening, and 6 this morning as well as at noon. he is not retaining urine by bladder scans. Exam Narrative Exam Narrative: General: Pleasant middle aged male, very slightly tremulous, A&Ox3 HEENT: EOMI, MMM Heart: RRR, tachycardic, no m/r/g Lungs: Diminished breath sounds at B bases Abdomen: soft, mildly tender in epigastrium Extremities: no edema BLE's Objective Last Vital Signs Temp 37.4 C 12/16/20 12:19 Pulse 104 H 12/16/20 12:19 Resp 22 12/16/20 12:19 BP 126/77 12/16/20 12:19 Pulse Ox 91 L 12/16/20 12:19 Laboratory Results - last 24 hr 12/15/20 12/15/20 12/15/20 15:33 15:40 15:40 WBC RBC Hgb Hct MCV MCH MCHC RDW Plt Count MPV Immature Gran % Neutrophils % Lymphocytes % Monocytes % Eosinophils % Basophils % Nucleated RBC % Absolute Neutrophils Absolute Lymphocytes Absolute Monocytes Absolute Eosinophils Absolute Basophils PT INR APTT VBG Lactate 1.6 H Sodium 140 Potassium 3.8 Chloride 101 Carbon Dioxide 29.3 Anion Gap 9.7 BUN 9 Creatinine 1.3 Estimated GFR/1.73 m2 55.40 Glucose 134 H Calcium 8.9 Magnesium 2.1 Total Bilirubin 1.1 H Conjugated Bilirubin AST 47 H ALT 44 Alkaline Phosphatase 69 Total Protein 8.1 Albumin 4.2 Lipase > 42445 H Urine Color Cancelled Urine Clarity Cancelled Urine pH Cancelled Ur Specific [place] Cancelled Urine Protein Cancelled Urine Ketones Cancelled Urine Blood Cancelled Urine Nitrite Cancelled Urine Bilirubin Cancelled Urine Urobilinogen Cancelled Ur Leukocyte Esterase Cancelled Urine RBC Urine WBC Ur Epithelial Cells Urine Crystals Urine Bacteria Urine Casts Urine Mucus Ur Culture Indicated? Urine Glucose Cancelled COVID-19 Source SARS-CoV-2 (PCR) 12/15/20 12/15/20 12/15/20 15:40 15:40 16:15 WBC 11.09 H RBC 4.76 Hgb 16.4 Hct 47.4 MCV 99.6 H MCH 34.5 H MCHC 34.6 RDW 12.8 Plt Count 222 MPV 8.8 Immature Gran % 0.2 Neutrophils % 77.6 Lymphocytes % 15.3 Monocytes % 6.5 Eosinophils % 0.1 Basophils % 0.3 Nucleated RBC % 0 Absolute Neutrophils 8.61 H Absolute Lymphocytes 1.70 Absolute Monocytes 0.72 Absolute Eosinophils 0.01 Absolute Basophils 0.03 PT 10.4 INR 1.0 APTT 22.8 VBG Lactate Sodium Potassium Chloride Carbon Dioxide Anion Gap BUN Creatinine Estimated GFR/1.73 m2 Glucose Calcium Magnesium Total Bilirubin Conjugated Bilirubin AST ALT Alkaline Phosphatase Total Protein Albumin Lipase Urine Color Urine Clarity Urine pH Ur Specific [place] Urine Protein Urine Ketones Urine Blood Urine Nitrite Urine Bilirubin Urine Urobilinogen Ur Leukocyte Esterase Urine RBC Urine WBC Ur Epithelial Cells Urine Crystals Urine Bacteria Urine Casts Urine Mucus Ur Culture Indicated? Urine Glucose COVID-19 Source Nasal/Nares SARS-CoV-2 (PCR) Negative 12/16/20 12/16/20 12/16/20 06:59 06:59 14:16 WBC 10.41 RBC 4.30 L Hgb 14.7 Hct 42.6 MCV 99.1 H MCH 34.2 H MCHC 34.5 RDW 12.9 Plt Count 180 MPV 9.1 Immature Gran % 0.5 Neutrophils % 84.7 Lymphocytes % 7.7 Monocytes % 6.9 Eosinophils % 0.1 Basophils % 0.1 Nucleated RBC % 0 Absolute Neutrophils 8.82 H Absolute Lymphocytes 0.80 L Absolute Monocytes 0.72 Absolute Eosinophils 0.01 Absolute Basophils 0.01 PT INR APTT VBG Lactate Sodium Potassium Chloride Carbon Dioxide Anion Gap BUN Creatinine Estimated GFR/1.73 m2 Glucose Calcium Magnesium 1.9 Total Bilirubin 1.0 Conjugated Bilirubin 0.3 H AST 19 ALT 30 Alkaline Phosphatase 50 Total Protein 6.4 Albumin 3.3 L Lipase 68824 H Urine Color Dark Yellow Urine Clarity Clear Urine pH 6.0 Ur Specific [place] >= 1.030 H Urine Protein 100 H Urine Ketones 15 H Urine Blood Moderate H Urine Nitrite Negative Urine Bilirubin Small H Urine Urobilinogen 0.2 Ur Leukocyte Esterase Negative Urine RBC 5-10 H Urine WBC Negative Ur Epithelial Cells Few Urine Crystals Negative Urine Bacteria Negative Urine Casts 3-5 Hyaline Urine Mucus Trace Ur Culture Indicated? No Urine Glucose Negative COVID-19 Source SARS-CoV-2 (PCR) Objective Narrative Objective Narrative: MRCP: done,results pending
--- NOTE | 2020-12-16 16:38 | PDOC.CMIN ---
- If Service Date Differs Date of service: 12/16/20 Time of Service: 16:38 Care Management Initial Assess REASON FOR HOSPITALIZATION:: pancreatitis PAST MEDICAL HISTORY/PAST SURGICAL HISTORY:: Medical History. Essential hypertension. Macrocytic anemia. Pulmonary embolism. Pulmonary emphysema. Smoker PREVIOUS FUNCTIONAL STATUS/SOCIAL/FAMILY SUPPORTS:: yamila lives in a single family home in [place] with his Paige. They have 5 children between them. Several live on the [facility] and one family is close by. 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 he is independent at baseline. CURRENT FUNCTIONAL STATUS:: Yamlia was sitting up in bed visiting with his when CM met with him. He was pleasant and cooperative and engaged easily with CM. They both talked about their blended families and their life together. They have lived in several parts of the , including [place], but decidedto return to [place]. ADVANCE DIRECTIVES:: none on file Has patient been provided with info about the portal/API?: Yes Did the patient sign up for the portal?: Yes (previously) CODE STATUS:: Full Code INSURANCE COVERAGE / FINANCIAL ISSUES:: [facility] CURRENT HOME/COMMUNITY SERVICES/EQUIPMENT:: none currently PRIMARY CARE PHYSICIAN:: Haydee Davidson POTENTIAL DISCHARGE NEEDS:: follow up with PCP and plan of care PATIENT/FAMILY EDUCATION NEEDS:: review of discharge instructions, medications,activity, limitations, diet, Ask Me Three TRANSPORTATION:: via private vehicle with PLAN:: Yamila will christelle be discharged home with no new services. He will follow up with his community providers and plan of care and transport with his . CM will continue to support Yamila and assess for discharge planning concerns.
[2020-12-16 16:39] LABS: Calculated LDL 84 mg/dL (<100); Cholesterol 168 mg/dL (<200); HDL Cholesterol 67 mg/dL (40-60); Triglyceride 89 mg/dL (<150)
[2020-12-16] MEDS: LORazepam 1 MG TAB PO/SL (20:39)
[2020-12-16] MEDS: Pantoprazole 40 MG VIAL IVP (21:08)
[2020-12-16] MEDS: Acetaminophen 500 MG TAB PO (21:09)
[2020-12-16] MEDS: Tamsulosin 0.4 MG CAPCR PO (21:09)
[2020-12-16] MEDS: Zolpidem 5 MG TAB PO (21:09)
--- NOTE | 2020-12-17 | DI.RAD_ITS ---
Exam(s) XR PORTABLE CHEST AP EXAM: XR PORTABLE CHEST AP CLINICAL HISTORY: fever. TECHNIQUE: 2D digital imaging was performed. COMPARISON: CR CHEST 2 VIEWS PA,LAT from 01/26/2013 FINDINGS: Heart size is upper normal. The mediastinum is not widened. Lungs are clear. No infiltrates nor obvious pleural effusions. No pulmonary edema. No pneumothorax. IMPRESSION: No acute pulmonary findings on this single AP portable view of the chest. DATA REPOSITORY: RADIATION DOSE DELIVERED: All CT scans at this facility use at least one of these dose optimization techniques: automated exposure control; mA and/or kV adjustment per patient size (includes targeted e xams where dose is matched to clinical indication); or iterative reconstruction.
[2020-12-17 00:01] VITALS: BP 146/79; PULSE 108; RESP 16; TEMP 38.1; O2SAT 92
[2020-12-17 03:34] VITALS: BP 138/86; PULSE 107; RESP 19; TEMP 37.3; O2SAT 93
[2020-12-17] MEDS: HYDROmorphone 2 MG/ML VIAL 1 MG IVP (05:25)
[2020-12-17] MEDS: Lactated Ringers 1,000 ML 150 ML IV ×3 (05:26→19:27)
[2020-12-17 07:31] VITALS: BP 145/90; PULSE 112; RESP 18; TEMP 37.5; O2SAT 92
[2020-12-17 08:01] LABS: Abs Immature Grans 0.11 10^3/uL (0.0-0.06); Absolute Eosinophil Count 0.03 10^3/uL (0.0-0.7); Absolute Monocyte Count 0.96 10^3/uL (0.1-0.8); Absolute Neutrophil Count 11.01 10^3/uL (1.2-6.7); Basophils % 0.2; Eosinophils % 0.2; HCT 39.7 % (40.0-50.0); HGB 13.7 g/dL (13.5-17.5); Immature Grans % 0.8; MCH 34.3 pg (27.0-33.0); MCHC 34.5 % (32.0-36.0); MCV 99.5 fL (80-95); MPV 9.3 fL (8.0-11.0); Monocytes % 7.2; Neutrophils % 82.6; Nucleated RBC 0 %; Platelet Count 168 10^3/uL (130-400); RBC 3.99 10^6/uL (4.36-5.78); RDW 12.9 % (11.8-14.1); RDW-SD 47.8 fL; WBC 13.33 10^3/uL (4.4-10.8)
[2020-12-17 08:07] LABS: Absolute Basophil Count 0.03 10^3/uL (0.0-0.2)
[2020-12-17] MEDS: Multivitamin TAB 1 TAB PO (08:28)
[2020-12-17] MEDS: Apixaban 2.5 MG TAB PO ×2 (08:28→21:40)
[2020-12-17] MEDS: Thiamine 100 MG TAB PO (08:28)
[2020-12-17] MEDS: Folic Acid 1 MG TAB PO (08:28)
[2020-12-17 08:43] LABS: ALT 19 U/L (16-63); AST 19 U/L (15-37); Albumin 2.8 g/dL (3.4-5.0); Alkaline Phosphatase 44 U/L (46-116); Anion Gap 6.9 mmol/L (3-11); BUN 6 mg/dL (7-18); Bilirubin, Direct 0.5 mg/dL (0.0-0.2); Bilirubin, Total 1.5 mg/dL (0.2-1.0); CO2 26.1 mmol/L (21.0-32.0); Calcium 8.2 mg/dL (8.5-10.1); Chloride 104 mmol/L (98-107); Glucose 100 mg/dL (74-106); Magnesium 1.7 mg/dL (1.8-2.4); Potassium 3.7 mmol/L (3.5-5.1); Sodium 137 mmol/L (136-145); Total Protein 5.9 g/dL (6.4-8.2)
[2020-12-17 09:28] LABS: Folate 7.3 ng/mL (8.6-20.0); Vitamin B12 332 pg/mL (193-986)
[2020-12-17] MEDS: Magnesium Oxide 400 MG TAB PO (10:54)
--- NOTE | 2020-12-17 11:38 | CMPROGNOTE_ITS ---
- If Service Date Differs Date of service: 12/17/20 Time of Service: 11:38 Care Management Progress Note S/O: Leonides, as Nick likes to be called, was sitting up in bed when CM met with him. He was pleasant and engaged easily with CM. He shared that he continues to have pain; he stated he averages a 6/10. Leonides indicated that pain medication does help and that it hurts more when he is out of bed. While CM was meeting with Leonides his Paige came to visit. She asked about alcohol cessation p rograms or tips that could help Leonides after discharge. They are both aware that Leonides's alcohol consumption likely contributed to the pancreatitis and he expressed a desire to address the issue but did not commit to quitting completely. CM explained available resources including recovery coaches, AA, rehab programs, medication etc. They verbalized that they appreciated the information and will discuss it further. The provider had a similar discussion with them. A: Leonides is a 65 year old man admitted on 12/15/20 with pancreatitis. P: Leonides will likely be discharged home with no new services. He will follow up with his community providers and plan of care and transport with his . CM will continue to support Bud and assess for discharge planning concerns.
[2020-12-17 15:40] VITALS: BP 140/85; PULSE 100; RESP 14; TEMP 38.6; O2SAT 92
[2020-12-17 16:05] VITALS: TEMP 38.6
[2020-12-17] MEDS: Acetaminophen 500 MG TAB PO (16:05)
--- NOTE | 2020-12-17 16:14 | W.PM.PROGNOT ---
Date of Service Date of service: 12/17/20 Time of Service: 15:30 Assessment and Plan Assessment and plan (1) Acute pancreatitis: Start date: 12/17/20 Start time: 15:30 Status: Acute Assessment and plan: Continue IVF for the first 48 hrs, longer if unable to tolerate food Tolerating clears, was not able to tolerate advancement of diet. triglyceride level 89 IS. Bowel regimen. MRCP: IMPRESSION: 1. Findings are consistent with pancreatitis. Pancreatic duct is upper normal. There is no obvious mass in the pancreatic head. Calcifications described in the pancreatic head on the recent CT scan are not evident with in the nondilated CBD. Both the CBD and intrahepatic ducts are not dilated. Therefore these are most probably just independent increasing pancreatic head parenchymal calcifications. 2. Hepatic steatosis. Benign cyst in the liver again noted. Also benign cysts in both kidneys. No solid renal masses. No hydronephrosis. 3. Mild ascites. Small pleural effusions Qualifiers: Acute pancreatitis complication: uninfected necrosis Pancreatitis type: alcohol induced Qualified Code(s): K85.21 - Alcohol induced acute pancreatitis with uninfected necrosis (2) Alcohol abuse: Start date: 12/17/20 Start time: 15:30 Status: Chronic Assessment and plan: Add vitamins/thiamine. Monitor on CIWA with prn lorazepam. Symptoms are controlled at this time scoring 6-1-0 (3) Macrocytosis: Start date: 12/17/20 Start time: 15:30 Status: Acute Assessment and plan: folate 7.3 currently on oral supplementation (4) H/O factor V Leiden mutation: Start date: 12/17/20 Start time: 15:30 Status: Chronic Assessment and plan: Continue home anticoagulation (patient refuses lovenox; eliquis resumed). (5) Hypomagnesemia: Start date: 12/17/20 Start time: 16:39 Status: Acute Assessment and plan: replete with po supplementation 1.7 and recheck in am (6) Discharge planning issues: Start date: 12/17/20 Start time: 17:30 Status: Acute Assessment and plan: on eliquis. discussed with Dr. Tripathi Subjective Subjective Patient reports: still having pain Interval history since last seen: advanced diet to soft food, patient had pain after eating, will down grade to clears again. Continue IVF. Will trial advanced PO tomorrow if pain is better. he is febrile could be pancreatitis, however he has not had any imaging of his chest, no ua, will r/o abd u/s tomorrow make sure nothing more. Procal, lactate, blood cultures pending. Exam Narrative Exam Narrative: General: Pleasant middle aged male, very slightly tremulous, A&Ox3 HEENT: EOMI, MMM Heart: RRR, tachycardic, no m/r/g Lungs: Diminished breath sounds at B bases Abdomen: soft, RUQ tender in epigastrium Extremities: no edema BLE's Objective Last Vital Signs Temp 38.6 C H 12/17/20 16:05 Pulse 100 H 12/17/20 15:40 Resp 14 12/17/20 15:40 BP 140/85 12/17/20 15:40 Pulse Ox 92 12/17/20 15:40 Laboratory Results - last 24 hr 12/16/20 12/17/20 12/17/20 06:59 07:20 07:20 WBC 13.33 H RBC 3.99 L Hgb 13.7 Hct 39.7 L MCV 99.5 H MCH 34.3 H MCHC 34.5 RDW 12.9 Plt Count 168 MPV 9.3 Immature Gran % 0.8 Neutrophils % 82.6 Lymphocytes % 9.0 Monocytes % 7.2 Eosinophils % 0.2 Basophils % 0.2 Nucleated RBC % 0 Absolute Neutrophils 11.01 H Absolute Lymphocytes 1.20 Absolute Monocytes 0.96 H Absolute Eosinophils 0.03 Absolute Basophils 0.03 Sodium 137 Potassium 3.7 Chloride 104 Carbon Dioxide 26.1 Anion Gap 6.9 BUN 6 L Creatinine 1.0 Estimated GFR/1.73 m2 >= 60.00 Glucose 100 Calcium 8.2 L Magnesium 1.7 L Total Bilirubin 1.5 H Conjugated Bilirubin 0.5 H AST 19 ALT 19 Alkaline Phosphatase 44 L Total Protein 5.9 L Albumin 2.8 L Triglycerides 89 Total Cholesterol 168 LDL Cholesterol, Calc 84 HDL Cholesterol 67 Vitamin B12 332 Folate 7.3 L
--- NOTE | 2020-12-17 16:38 | DI.VRAD_ITS ---
PROCEDURE INFORMATION: Exam: XR Chest Exam date and time: 12/17/2020 4:13 PM Age: 65 years old Clinical indication: Other: Fever TECHNIQUE: Imaging protocol: XR of the chest. Views: 1 view. COMPARISON: CT CHEST FOR PULMONARY EMBOLUS 12/03/2015 6:10 PM FINDINGS: Lungs: Ill-defined hazy bibasilar opacities. Pleural spaces: No pneumothorax. No sizable pleural effusion. Heart/Mediastinum: Cardiomediastinal silhouette within normal limits. Bones/joints: No acute displaced fracture. IMPRESSION: Ill-defined hazy bibasilar opacities may represent atelectasis however pneumonia or developing pneumonia not excluded in the appropriate clinical setting. Dictated and Authenticated by: Yamil Oviedo MD. Ordering:AJ Dorado MD
--- NOTE | 2020-12-17 16:41 | PHA.REVIEW ---
Pharmacy Admission Review - Admission Clinical Review (Last Updated 12/16/20 @ 15:53 by Jenny Tripathi MD) Discharge planning issues (Acute) Macrocytosis (Acute) Acute pancreatitis (Acute) Sulfa (Sulfonamide Antibiotics) Allergy (Severe, Unverified 12/15/20 15:27) Resuscitation Status Full Code Height 5 ft 10 in Weight 96.2 kg - Renal Dosing Renal Dosing: BUN 6 mg/dL (7-18) L 12/17/20 07:20 Creatinine 1.0 mg/dL (0.70-1.30) 12/17/20 07:20 Medications needing adjustments: Reviewed (Crcl ~76 mL/min current meds okay) - Anticoagulation Anticoagulation: Hgb 13.7 g/dL (13.5-17.5) 12/17/20 07:20 Hct 39.7 % (40.0-50.0) L 12/17/20 07:20 Plt Count 168 10^3/uL (130-400) 12/17/20 07:20 INR 1.0 (0.9-1.1) 12/15/20 15:40 Creatinine 1.0 mg/dL (0.70-1.30) 12/17/20 07:20 DVT Prophylaxis: N/A Therapeutic Anticoagulation: Reviewed Medications: Apixaban - Opiate Usage Evaluate Pain Scale/Pains Meds: Reviewed Scheduled Bowel Reg ordered if on Opiates?: No (has prn meds ordered) - Relevant Labs Sodium 137 mmol/L (136-145) 12/17/20 07:20 Potassium 3.7 mmol/L (3.5-5.1) 12/17/20 07:20 Chloride 104 mmol/L (98-107) 12/17/20 07:20 Magnesium 1.7 mg/dL (1.8-2.4) L 12/17/20 07:20 Electrolytes, C-Reactive P, ESR: Reviewed (PO mag replacement ordered) - DM Control DM Control: Glucose 100 mg/dL (74-106) 12/17/20 07:20 Insulin Dosing: N/A - Heart Failure/MN EF%, MARVIN's, B-Blockers, Diuretics: N/A - BP Control BP Control: Blood Pressure 140/85 Blood Pressure 145/90 If elevated: Reviewed (BP has been elevated most of admission so far) - Qtc Review If Elevated: N/A (QTc 449 on admission) - IV to PO Switch IV Medications: Intervened (Asked provider about changing pantoprazole from IV to PO as pt is taking other PO meds.) - Home Meds Home Med List reviewed: Reviewed Relevent Home Meds Not ordered & why?: furosemide and rosuvastatin - Current meds Current Medication Order Review: Intervened (Discontinued duplicate med orders.) - Comments Comments/Follow Ups: Watch BP, mag, labs and for med changes (home meds, need of additional BM meds).
[2020-12-17 16:58] LABS: Bilirubin Negative (Negative); Blood Trace-intact (Negative); Clarity Clear (Clear); Glucose Negative (Negative); Ketones 15 mg/dL (Negative); Leukocyte Esterase Negative (Negative); Nitrite Negative (Negative); Specific Gravity 1.015 (1.005-1.025); Urobilinogen 0.2 EU/dL (Up TO 0.2)
[2020-12-17 17:07] LABS: Bacteria Negative HPF (Negative); C & S Indicated? No; Crystals Negative HPF (Negative); Epithelial Cells Negative HPF (Negative); Mucus Negative (Negative); RBC 0-2 HPF (0-2); WBC Negative HPF (0-5)
[2020-12-17 17:09] LABS: Procalcitonin 0.4 ng/mL
[2020-12-17 18:04] VITALS: TEMP 37.2
[2020-12-17] MEDS: Pantoprazole 20 MG TABCR 40 MG PO (21:40)
[2020-12-17] MEDS: Zolpidem 5 MG TAB PO (21:40)
[2020-12-17] MEDS: Tamsulosin 0.4 MG CAPCR PO (21:41)
--- NOTE | 2020-12-18 | DI.US_ITS ---
Exam(s) US ABDOMEN EXAM: US ABDOMEN CLINICAL HISTORY: fever TECHNIQUE: Ultrasound of complete upper abdomen performed using standard protocol. COMPARISON: US US ABDOMEN RENAL from 12/25/2019 FINDINGS: There is no ascites evident. LIVER: Liver is hyperechoic indicating steatosis. There are 2 adjacent cystic structures in the left hepatic lobe, correspond to what is recently seen on CT scan. The larger of the 2 measures approxim ately 2 cm diameter. These have the appearance of slightly complex but benign appearing cysts GALLBLADDER/BILIARY: There are no gallstones. No gallbladder wall edema nor pericholecystic fluid. The common hepatic duct isnot dilated, measuring 3-4mm at the level of zayra hepatis. PANCREAS: There is no evidence of pancreatic mass nor dilatation of the pancreatic duct. SPLEEN: The spleen is not enlarged and there are no intrasplenic lesions evident. KIDNEYS:The 2.6 x 2.5 cm cyst in the right kidney. No cysts evident in the left kidney. Corticomedu llary differentiation is maintained both kidneys no calculi nor hydronephrosis. No cortical cysts ev ident. ABDOMINAL AORTA: Not seen due to overlying bowel gas IVC: Normal diameter where visualized. IMPRESSION: 1. No evidence of cholelithiasis nor dilatation of the biliary tree. 2. Hepatic steatosis and benign cystic structures in the liver parenchyma again noted. 3. Renal cysts as described above. There is no ascites. DATA REPOSITORY:
[2020-12-18] MEDS: Lactated Ringers 1,000 ML 150 ML IV ×2 (04:02→11:31)
[2020-12-18 04:08] VITALS: BP 148/87; PULSE 100; RESP 14; TEMP 37.7; O2SAT 93
[2020-12-18] MEDS: LORazepam 1 MG TAB PO/SL (06:06)
[2020-12-18 08:04] LABS: Abs Immature Grans 0.08 10^3/uL (0.0-0.06); Absolute Basophil Count 0.02 10^3/uL (0.0-0.2); Absolute Eosinophil Count 0.03 10^3/uL (0.0-0.7); Absolute Lymphocyte Count 1.04 10^3/uL (1.2-3.4); Absolute Monocyte Count 0.95 10^3/uL (0.1-0.8); Basophils % 0.2; Eosinophils % 0.3; HCT 36.7 % (40.0-50.0); HGB 12.4 g/dL (13.5-17.5); Immature Grans % 0.7; Lymphocytes % 9.1; MCH 33.9 pg (27.0-33.0); MCHC 33.8 % (32.0-36.0); MCV 100.3 fL (80-95); MPV 9.3 fL (8.0-11.0); Monocytes % 8.3; Neutrophils % 81.4; Nucleated RBC 0 %; Platelet Count 168 10^3/uL (130-400); RBC 3.66 10^6/uL (4.36-5.78); RDW 12.6 % (11.8-14.1); RDW-SD 47.2 fL; WBC 11.44 10^3/uL (4.4-10.8)
[2020-12-18 08:09] LABS: Anion Gap 10.7 mmol/L (3-11); BUN 6 mg/dL (7-18); CO2 23.3 mmol/L (21.0-32.0); Calcium 8.5 mg/dL (8.5-10.1); Chloride 105 mmol/L (98-107); Glucose 102 mg/dL (74-106); Magnesium 1.8 mg/dL (1.8-2.4); Potassium 3.4 mmol/L (3.5-5.1); Sodium 139 mmol/L (136-145)
[2020-12-18 08:16] LABS: Absolute Neutrophil Count 9.31 10^3/uL (1.2-6.7)
--- NOTE | 2020-12-18 08:48 | DI.VRAD_ITS ---
PROCEDURE INFORMATION: Exam: US Abdomen Complete Exam date and time: 12/18/2020 7:12 AM Age: 65 years old Clinical indication: Fever; Patient HX: Pancreatitis TECHNIQUE: Imaging protocol: Real-time ultrasound of the abdomen with image documentation. COMPARISON: SD US ABDOMEN RENAL 12/25/2019 7:05 AM FINDINGS: Liver: Liver is enlarged measuring 17.2 cm. Hepatic parenchyma is echogenic with coarsened echotexture. Low-attenuation hepatic lesions in the left hepatic lobe, the larger of which measures approximately 19 mm in maximum diameter, probably mildly complex hepatic cysts. Gallbladder: No gallstones. No significant gallbladder wall thickening. Negative sonographic Anne's sign. Common bile duct: No stones. No significant dilation. Pancreas: Echogenic appearance of the pancreas. Pancreatic evaluation is limited due to bowel gas. Right kidney: Right renal cyst measures 2.6 cm. No hydronephrosis. Left kidney: No mass. No hydronephrosis. Spleen: No splenomegaly. Aorta: Aorta is obscured by bowel gas. Inferior vena cava: No significant dilatation. IMPRESSION: 1. Echogenic hepatic parenchyma with mildly coarsened echotexture. This is nonspecific, but may be seen with hepatic steatosis. Some degree of underlying cirrhosis not excluded. 2. Low-attenuation hepatic lesions in the left hepatic lobe, the larger of which measures approximately 19 mm in maximum diameter, probably mildly complex hepatic cysts. 3. Echogenic appearance of the pancreas, not well evaluated due to bowel gas. May be related to pancreatitis seen on recent CT from 12/15/2020. Dictated and Authenticated by: Sravan Buchanan MD. Ordering:AJ Dorado MD
[2020-12-18] MEDS: Folic Acid 1 MG TAB PO (09:33)
[2020-12-18] MEDS: Thiamine 100 MG TAB PO (09:33)
[2020-12-18] MEDS: Multivitamin TAB 1 TAB PO (09:33)
[2020-12-18] MEDS: Apixaban 2.5 MG TAB PO ×2 (09:33→20:00)
[2020-12-18 09:39] VITALS: BP 146/88; PULSE 96; RESP 20; TEMP 38.1; O2SAT 99
[2020-12-18] MEDS: CEFEPIME 1 GM in Normal Saline 50 ML IVPB (10:47)
[2020-12-18 10:48] VITALS: TEMP 38.1
[2020-12-18] MEDS: Acetaminophen 500 MG TAB PO (10:48)
--- NOTE | 2020-12-18 14:49 | W.PM.PROGNOT ---
Date of Service Date of service: 12/18/20 Time of Service: 14:50 Assessment and Plan Assessment and plan (1) Aspiration pneumonia due to vomit: Start date: 12/18/20 Start time: 14:54 Status: Acute Assessment and plan: Patient states that he vomited prior to admission 4 times. He likely aspirated. He has been febrile with elevated procal of 0.4, cxr with pneumonia. will treat with unasyn, Blood cultures pending. MRSA pending. Qualifiers: Laterality: unspecified laterality Lung location: unspecified part of lung Qualified Code(s): J69.0 - Pneumonitis due to inhalation of food and vomit (2) Acute pancreatitis: Start date: 12/18/20 Start time: 14:55 Status: Acute Assessment and plan: Will increase diet to full. Bowel regimen. Abd us revealed IMPRESSION: 1. Echogenic hepatic parenchyma with mildly coarsened echotexture. This is nonspecific, but may be seen with hepatic steatosis. Some degree of underlying cirrhosis not excluded. 2. Low-attenuation hepatic lesions in the left hepatic lobe, the larger of which measures approximately 19 mm in maximum diameter, probably mildly complex hepatic cysts. 3. Echogenic appearance of the pancreas, not well evaluated due to bowel gas. May be related to pancreatitis seen on recent CT from 12/15/2020. Qualifiers: Pancreatitis type: alcohol induced Acute pancreatitis complication: uninfected necrosis Qualified Code(s): K85.21 - Alcohol induced acute pancreatitis with uninfected necrosis (3) Alcohol abuse: Start date: 12/18/20 Start time: 15:01 Status: Chronic Assessment and plan: Add vitamins/thiamine. Monitor on CIWA with prn lorazepam. Symptoms are controlled at this time (4) Macrocytosis: Start date: 12/18/20 Start time: 15:02 Status: Acute Assessment and plan: folate 7.3 currently on oral supplementation (5) H/O factor V Leiden mutation: Start date: 12/18/20 Start time: 15:02 Status: Chronic Assessment and plan: Continue home anticoagulation (patient refuses lovenox; eliquis resumed). (6) Hypomagnesemia: Start date: 12/18/20 Start time: 15:02 Status: Resolved Assessment and plan: 1.8 (7) Discharge planning issues: Start date: 12/18/20 Start time: 15:03 Status: Acute Assessment and plan: on [facility]. home when medically stable discussed with Dr. Coronado Subjective Subjective Patient reports: feels better Interval history since last seen: Patient states he feels better. He did endorse throwing up prior to admission, he is febrile today, at 38.1 and cxr reveals pneumonia, he also has a procal of 0.4, will treat for asp pneumonia. antibotics changed to unysan. Blood cx pending. Abd with little tenderness. he would like to try full liquids. Exam Narrative Exam Narrative: General: Pleasant middle aged male, very slightly tremulous, A&Ox3 HEENT: EOMI, MMM Heart: RRR, tachycardic, no m/r/g Lungs: Diminished breath sounds at B bases Abdomen: soft, RUQ tender in epigastrium Extremities: no edema BLE's Objective Last Vital Signs Temp 38.1 C H 12/18/20 10:48 Pulse 96 H 12/18/20 09:39 Resp 20 12/18/20 09:39 BP 146/88 H 12/18/20 09:39 Pulse Ox 99 12/18/20 09:39 Laboratory Results - last 24 hr 12/17/20 12/17/20 12/18/20 16:20 16:45 07:36 WBC RBC Hgb Hct MCV MCH MCHC RDW Plt Count MPV Immature Gran % Neutrophils % Lymphocytes % Monocytes % Eosinophils % Basophils % Nucleated RBC % Absolute Neutrophils Absolute Lymphocytes Absolute Monocytes Absolute Eosinophils Absolute Basophils VBG Lactate 1.0 Sodium 139 Potassium 3.4 L Chloride 105 Carbon Dioxide 23.3 Anion Gap 10.7 BUN 6 L Creatinine 1.0 Estimated GFR/1.73 m2 >= 60.00 Glucose 102 Calcium 8.5 Magnesium 1.8 Procalcitonin 0.4 Urine Color Yellow Urine Clarity Clear Urine pH 8.0 Ur Specific [place] 1.015 Urine Protein Trace H Urine Ketones 15 H Urine Blood Trace-intact H Urine Nitrite Negative Urine Bilirubin Negative Urine Urobilinogen 0.2 Ur Leukocyte Esterase Negative Urine RBC 0-2 Urine WBC Negative Ur Epithelial Cells Negative Urine Crystals Negative Urine Bacteria Negative Urine Mucus Negative Ur Culture Indicated? No Urine Glucose Negative 12/18/20 07:36 WBC 11.44 H RBC 3.66 L Hgb 12.4 L Hct 36.7 L MCV 100.3 H MCH 33.9 H MCHC 33.8 RDW 12.6 Plt Count 168 MPV 9.3 Immature Gran % 0.7 Neutrophils % 81.4 Lymphocytes % 9.1 Monocytes % 8.3 Eosinophils % 0.3 Basophils % 0.2 Nucleated RBC % 0 Absolute Neutrophils 9.31 H Absolute Lymphocytes 1.04 L Absolute Monocytes 0.95 H Absolute Eosinophils 0.03 Absolute Basophils 0.02 VBG Lactate Sodium Potassium Chloride Carbon Dioxide Anion Gap BUN Creatinine Estimated GFR/1.73 m2 Glucose Calcium Magnesium Procalcitonin Urine Color Urine Clarity Urine pH Ur Specific [place] Urine Protein Urine Ketones Urine Blood Urine Nitrite Urine Bilirubin Urine Urobilinogen Ur Leukocyte Esterase Urine RBC Urine WBC Ur Epithelial Cells Urine Crystals Urine Bacteria Urine Mucus Ur Culture Indicated? Urine Glucose
[2020-12-18 15:16] VITALS: BP 144/82; PULSE 90; RESP 18; TEMP 37.5; O2SAT 93
[2020-12-18] MEDS: AMPICILLIN/SULBACTAM 1.5 GM in Normal Saline 50 ML IVPB ×2 (16:21→23:49)
[2020-12-18] MEDS: Potassium Chloride 20 MEQ TABCR 40 MEQ PO (16:21)
--- NOTE | 2020-12-18 16:38 | SCONE_ITS ---
Assessment and Plan Assessment and plan (1) Acute pancreatitis: Status: Acute Assessment and plan: -Likely secondary to alcohol intake -OK to allow PO intake ad lesly -No current evidence of gallbladder pathology Qualifiers: Pancreatitis type: alcohol induced Acute pancreatitis complication: uninfected necrosis Qualified Code(s): K85.21 - Alcohol induced acute pancreatitis with uninfected necrosis (2) Liver cyst: Status: Acute Assessment and plan: -Multiple present, [facility] -Consider triple phase CT or MRI -Follow up with [facility] (3) Alcohol abuse: Status: Chronic Assessment and plan: -Advised to decrease use, counseled on cirrhosis (4) H/O factor V Leiden mutation: Status: Chronic (5) Aspiration pneumonia due to vomit: Status: Acute Qualifiers: Laterality: unspecified laterality Lung location: unspecified part of lung Qualified Code(s): J69.0 - Pneumonitis due to inhalation of food and vomit History of Present Illness Narrative: 65 year old male currently admitted for suspected alcohol induced pancreatitis who the surgical service was asked to see regarding his complex hepatobiliary pathology. He has multiple areas within his cirrhotic hepatic parenchyma that appear cystic on most recent CT scan. There currently is no evidence that the etiology of his pancreatitis is related to gallbladder pathology given its normal appearance on CT and US as well as laboratory values. He reports this is the first episode of pancreatitis he has ever had and has continued to feel better since admission. Consults Consult date: 12/18/20 Requesting physician: Ave Suggs Review of Systems Constitutional Constitutional: Denies chills, Denies fatigue, Denies fever(s) and Denies he adache(s) ENT Ears, Nose, Mouth, and Throat: Denies headache(s) Cardiovascular Cardiovascular: Denies chest pain and Denies dyspnea Respiratory Respiratory: Denies cough and Denies dyspnea Gastrointestinal Gastrointestinal: Reports abdominal pain, Denies change in bowel habits, Denies diarrhea, Denies nausea and Reports vomiting (prior to admission) Neurologic Neurologic: Denies headache(s) Endocrine Endocrine: Denies fatigue [facility] Medical History Essential hypertension H/O factor V Leiden mutation Macrocytic anemia Pulmonary embolism Pulmonary emphysema Smoker Social History Smoking/Tobacco Use Status: Former Tobacco Use Smoking risk assessment performed?: Yes Alcohol Intake: current Alcohol Intake frequency: 3 or more drinks per day Alcohol type: beer, wine and hard liquor Drug use: Daily Substance use type: marijuana Do you feel safe at home: Yes Do you feel safe in your relationship?: Yes Exam Const General: cooperative, healthy appearing, comfortable and no acute distress Eyes Sclera: scleral abnormality (muddy) Resp Effort & Inspection: normal respiratory effort, no audible wheezes and no respiratory distress Cardio Rate: regular rate Rhythm: regular rhythm GI Inspection: normal to inspection and distended Palpation: soft, no guarding and tender (mild right mid abdomen) Percussion: tympanic to percussion Skin General skin exam: no rashes or lesions noted Results Last Vital Signs Temp 99.5 F 12/18/20 15:16 Pulse 90 12/18/20 15:16 Resp 18 12/18/20 15:16 BP 144/82 H 12/18/20 15:16 Pulse Ox 93 12/18/20 15:16 Labs Result diagrams: 12/18/20 07:36 12/18/20 07:36 Labs: Laboratory Results - last 24 hr 12/17/20 12/17/20 12/18/20 16:20 16:45 07:36 WBC RBC Hgb Hct MCV MCH MCHC RDW Plt Count MPV Immature Gran % Neutrophils % Lymphocytes % Monocytes % Eosinophils % Basophils % Nucleated RBC % Absolute Neutrophils Absolute Lymphocytes Absolute Monocytes Absolute Eosinophils Absolute Basophils VBG Lactate 1.0 Sodium 139 Potassium 3.4 L Chloride 105 Carbon Dioxide 23.3 Anion Gap 10.7 BUN 6 L Creatinine 1.0 Estimated GFR/1.73 m2 >= 60.00 Glucose 102 Calcium 8.5 Magnesium 1.8 Procalcitonin 0.4 Urine Color Yellow Urine Clarity Clear Urine pH 8.0 Ur Specific [place] 1.015 Urine Protein Trace H Urine Ketones 15 H Urine Blood Trace-intact H Urine Nitrite Negative Urine Bilirubin Negative Urine Urobilinogen 0.2 Ur Leukocyte Esterase Negative Urine RBC 0-2 Urine WBC Negative Ur Epithelial Cells Negative Urine Crystals Negative Urine Bacteria Negative Urine Mucus Negative Ur Culture Indicated? No Urine Glucose Negative 12/18/20 07:36 WBC 11.44 H RBC 3.66 L Hgb 12.4 L Hct 36.7 L MCV 100.3 H MCH 33.9 H MCHC 33.8 RDW 12.6 Plt Count 168 MPV 9.3 Immature Gran % 0.7 Neutrophils % 81.4 Lymphocytes % 9.1 Monocytes % 8.3 Eosinophils % 0.3 Basophils % 0.2 Nucleated RBC % 0 Absolute Neutrophils 9.31 H Absolute Lymphocytes 1.04 L Absolute Monocytes 0.95 H Absolute Eosinophils 0.03 Absolute Basophils 0.02 VBG Lactate Sodium Potassium Chloride Carbon Dioxide Anion Gap BUN Creatinine Estimated GFR/1.73 m2 Glucose Calcium Magnesium Procalcitonin Urine Color Urine Clarity Urine pH Ur Specific [place] Urine Protein Urine Ketones Urine Blood Urine Nitrite Urine Bilirubin Urine Urobilinogen Ur Leukocyte Esterase Urine RBC Urine WBC Ur Epithelial Cells Urine Crystals Urine Bacteria Urine Mucus Ur Culture Indicated? Urine Glucose
[2020-12-18] MEDS: Magnesium Oxide 400 MG TAB PO (20:00)
[2020-12-18] MEDS: traMADol 50 MG TAB PO (20:05)
[2020-12-18] MEDS: Pantoprazole 20 MG TABCR 40 MG PO (21:43)
[2020-12-18] MEDS: Tamsulosin 0.4 MG CAPCR PO (21:43)
[2020-12-18 23:47] VITALS: BP 151/89; PULSE 88; RESP 16; TEMP 36.8; O2SAT 94
[2020-12-19 06:59] LABS: Abs Immature Grans 0.09 10^3/uL (0.0-0.06); Absolute Basophil Count 0.02 10^3/uL (0.0-0.2); Absolute Eosinophil Count 0.06 10^3/uL (0.0-0.7); Absolute Lymphocyte Count 1.02 10^3/uL (1.2-3.4); Absolute Monocyte Count 1.17 10^3/uL (0.1-0.8); Absolute Neutrophil Count 9.08 10^3/uL (1.2-6.7); Basophils % 0.2; Eosinophils % 0.5; HCT 34.9 % (40.0-50.0); HGB 11.9 g/dL (13.5-17.5); Immature Grans % 0.8; Lymphocytes % 8.9; MCH 33.9 pg (27.0-33.0); MCHC 34.1 % (32.0-36.0); MCV 99.4 fL (80-95); MPV 9.1 fL (8.0-11.0); Monocytes % 10.2; Neutrophils % 79.4; Nucleated RBC 0 %; Platelet Count 189 10^3/uL (130-400); RBC 3.51 10^6/uL (4.36-5.78); RDW 12.6 % (11.8-14.1); RDW-SD 45.8 fL; WBC 11.43 10^3/uL (4.4-10.8)
[2020-12-19 07:23] LABS: ALT 17 U/L (16-63); AST 15 U/L (15-37); Albumin 2.7 g/dL (3.4-5.0); Alkaline Phosphatase 57 U/L (46-116); BUN 6 mg/dL (7-18); Bilirubin, Direct 0.4 mg/dL (0.0-0.2); Bilirubin, Total 1.1 mg/dL (0.2-1.0); C-Reactive Protein 22.84 mg/dL (0.0-0.3); CREATININE 0.9 mg/dL (0.70-1.30); Calcium 8.5 mg/dL (8.5-10.1); Chloride 104 mmol/L (98-107); Glucose 99 mg/dL (74-106); Lipase 1155 U/L (73-393); Magnesium 1.9 mg/dL (1.8-2.4); Potassium 3.6 mmol/L (3.5-5.1); Sodium 138 mmol/L (136-145); Total Protein 6.3 g/dL (6.4-8.2)
[2020-12-19 07:35] VITALS: BP 156/92; PULSE 92; RESP 18; TEMP 37; O2SAT 94
[2020-12-19] MEDS: Apixaban 2.5 MG TAB PO (07:44)
[2020-12-19] MEDS: Magnesium Oxide 400 MG TAB PO (07:44)
[2020-12-19] MEDS: Multivitamin TAB 1 TAB PO (07:44)
[2020-12-19] MEDS: Folic Acid 1 MG TAB PO (07:44)
[2020-12-19] MEDS: Thiamine 100 MG TAB PO (07:44)
[2020-12-19] MEDS: Normal Saline Flush 10 ML SYR IVP (07:45)
[2020-12-19] MEDS: AMPICILLIN/SULBACTAM 1.5 GM in Normal Saline 50 ML IVPB (08:01)
[2020-12-19] MEDS: Amoxicillin 875/Clav. 125 TAB PO (11:42)
[2020-12-19 11:46] LABS: Procalcitonin 0.3 ng/mL
--- NOTE | 2020-12-19 12:46 | W.PM.DS.N ---
Date of service: 12/19/20 Time of Service: 12:47 DS: Diagnosis Discharge Diagnosis (1) Aspiration pneumonia due to vomit: Start date: 12/19/20 Start time: 13:01 Status: Acute Asessment and Plan: Patient vomited prior to admission febrile on admission, cxr revealing: IMPRESSION: Ill-defined hazy bibasilar opacities may represent atelectasis however pneumonia or developing pneumonia not excluded in the appropriate clinical setting. Procal initially was 0.4, placed on unysyn, BC are NGTD, he has been afebrile over 24 hours he feels good and wants to go home he is tolerating a diet he has no pain therefore will place on augmentin x 2 weeks with follow up labs in 1 week CRP was 22.84 MRSA negative. Follow up with PCP in 2 weeks. (2) Acute pancreatitis: Start date: 12/19/20 Start time: 12:54 Status: Resolved Asessment and Plan: Due to alcohol. Patient understands he can no longer drink alcohol. He states he can stop. His supports this and states she does not drink often and will support him. His pain is gone and he is able to tolerate bland low fat meals. He should continue low fat bland meals. He has no pain with eating Lipase is decreasing liver enzymes normal Bili conjugated and total are trending down (3) Liver cyst: Start date: 12/19/20 Start time: 12:59 Status: Acute Asessment and Plan: Found on imaging, per patient these have been chronic. Benign (4) Alcohol abuse: Start date: 12/19/20 Start time: 13:00 Status: Chronic Asessment and Plan: as above (5) H/O factor V Leiden mutation: Start date: 12/19/20 Start time: 13:00 Status: Chronic Asessment and Plan: continue abixaban discussed with Ivonne Discharge Plan Disposition Patient Disposition: HOME Condition: Good Discharge Details Reason For Visit: Pancreatitis Admit Date/Time: 12/15/20 19:17 Admit Provider: Bruce Rose Attending Provider: Bruce Rose Primary Care Provider: Haydee Davidson Hospital Course Hospital Course: 65 y.o male with PMH of liver cyst, alcohol abuse, tobacco dependece, factor v leiden on apixaban, admitted to m/s after having vomiting and abdominal pain. He was found to have elevated lipase with elevate wbc, febrile. He was admitted with pancreatitis, IV hydration was started and he was given clears. After 24 hours his diet was increased to full and he was still having severe pain, diet was decreased, IVF continued. He became febrile again. Procal ordered with cxr and found to have IMPRESSION: Ill-defined hazy bibasilar opacities may represent atelectasis however pneumonia or developing pneumonia not excluded in the appropriate clinical setting. with procal of 0.4, crp 22. He was placed on unysan. Today he feels great and wants to go home. He is tolerating a regular bland low fat diet without pain. no pain with palpation. Liver enzymes normal, bili is trending down. Will repeat labs in 1 week. He will be treated with 14 day course augmentin. BC NGTD. F/u with PCP in 2 weeks. He denies CP, SOB, N/V/D. Home Meds and New Rx's Prescriptions: New pantoprazole [Protonix] 20 mg Tablet,Delayed Release (Dr/Ec) 40 mg PO Q24H Qty: 30 RF: 0 folic acid 1 mg Tablet 1 mg PO QAM Qty: 30 RF: 0 amoxicillin-pot clavulanate 875-125 mg Tablet 1 tab PO BID Qty: 27 RF: 0 Continued Eliquis 2.5 mg tablet 2.5 mg PO BID RF: 0 tamsulosin [Flomax] 0.4 mg capsule 0.4 mg PO DAILY Qty: 90 RF: 3 furosemide [Lasix] 20 MG tablet 20 mg PO BID RF: 0 tiotropium bromide 2.5 mcg/actuation mist 2 puff inhalation DAILY RF: 0 rosuvastatin [Crestor] 5 mg tablet 5 mg PO DAILY RF: 0 Discharge Instructions Instructions: Pancreatitis (DC), Low Fat Diet (DC), Aspiration Pneumonia (DC), Ascites (DC), MRCP (Magnetic Resonance Cholangiopancreatography) (DC) Additional Instructions: Stick to a low fat bland diet for to give your pancreas a rest you can take tylenol for pain Take augmentin for 2 weeks, you had your first dose here Repeat lab work in 1 week Follow up with PCP in 2 weeks. STOP DRINKING, if you drink you will harm you pancreas this can lead to cirrhosis (liver disease). Stand Alone Forms: Nursing Discharge Form Activity:: Activity as Tolerated Equipment/Supplies:: No Equipment Needed Diet:: as above Discharge Orders Discharge Orders: Discharge Order (Routine); Ordered 12/19/20 Ordered By: Ave Suggs Other Ambulatory Orders: Complete Blood Count w/Diff (Routine) Timeframe: 1 Week Location: None Selected Ordered By: Ave Suggs Comprehensive Metabolic Panel (Routine) Timeframe: 1 Week Location: None Selected Ordered By: Ave Suggs Procalcitonin (DAILY AM) Timeframe: 20201227 Location: None Selected Ordered By: Ave Suggs C-Reactive Protein (Routine) Timeframe: 1 Week Location: None Selected Ordered By: Ave Suggs DS: Summary Time Spent with Patient providing and/or coordinating discharge services: Greater than 30 minutes Status at Discharge Functional status at discharge: independent ambulation Overall status at discharge: patient is progressing back to baseline Mental Status: mental status grossly normal Speech and Movement: speech and movement normal Mood: congruent mood Affect: normal affect Exam Narrative Exam Narrative: General: Pleasant middle aged male, restless sitting up in chair wants to go home, no signs of w/d, A&Ox3 HEENT: EOMI, MMM Heart: RRR, no m/r/g Lungs: Diminished breath sounds at B bases Abdomen: soft, RUQ tender in epigastrium Extremities: no edema BLE's Psych Mental Status: mental status grossly normal Speech and Movement: speech and movement normal Mood: congruent mood Affect: normal affect DS: Data Vitals/I&O Vitals and I&O: Vital Signs Temperature 37.0 C 12/19/20 07:35 Temperature Source Tympanic 12/19/20 07:35 Pulse 92 H 12/19/20 07:35 Pulse Rhythm Regular 12/19/20 07:51 Pulse 97 H 12/15/20 20:01 Respiratory Rate 18 12/19/20 07:35 Respiratory Effort 12/19/20 07:51 Respiratory Depth Normal 12/19/20 07:51 Respiratory Pattern Normal 12/19/20 07:51 Blood Pressure 156/92 H 12/19/20 07:35 Blood Pressure Mean 93 12/15/20 20:01 Blood Pressure Position Sitting 12/15/20 15:24 Pulse Oximetry 94 12/19/20 07:35 Oxygen Delivery Method Room Air 12/19/20 07:35 Oxygen Flow Rate 0 12/19/20 07:35 Pain Level 0 12/19/20 07:35 Comment 12/17/20 18:04 Intake & Output 12/18/20 12/19/20 12/19/20 23:59 11:59 23:59 Intake Total 2337.5 / 4387.5 550 / 550 Output Total 500 / 1800 Balance 1837.5 / 2587.5 550 / 550 Weight 96.6 kg Intake: IV 927.5 / 2977.5 100 / 100 Oral 1410 / 1410 450 / 450 Output: Urine 500 / 1800 Other: Urine Color Yellow Urine Appearance Clear Clear Urine Odor None None Comment pt voiding in toilet this am, no c/o of any difficulty or pain with urination. Stool Size Moderate Stool Characteristics Formed Brown Voiding Methods Toilet Data Completed and Pending Completed studies during hospitalization [Text1]: Exam(s) a CT:CT abdomen & pelvis w Exam(s) CT ABDOMEN PELVIS W EXAM: CT ABDOMEN PELVIS W CLINICAL HISTORY: ABD PAIN, MOST @ LEFT, N/V. TECHNIQUE: Imaging Protocol: Axial computed tomography images with coronal and sagittal reformatted images were created and reviewed CONTRAST MATERIAL: Intravenous: Omnipaque 100cc Oral: None COMPARISON: CT CT ABDOMEN PELVIS W from 02/17/2019 FINDINGS: VISUALIZED LUNG BASES: Dependent markings in both lung bases, more so on the right side, unchanged. No pleural effusions.. ABDOMEN: There is no ascites. LIVER: There are 2 adjacent benign cysts in the left hepatic lobe again noted, and there is a tiny 3 millimeter cyst in the right hepatic lobe noted. Intrahepatic ducts are not dilated. GALLBLADDER/BILIARY: phyryngian cap noted CBD is not dilated. PANCREAS: There is no abundant streaking around the pancreas consistent with acute pancreatitis. Pancreatic duct is not dilated. The intrapancreatic CBD is not dilated but there is a increase in parenchymal calcifications within the pancreatic head. There is peripancreatic fluid extending around the duodenum. There is no evidence of pseudoaneurysm of the gastroduodenal artery. SPLEEN: Spleen is not enlarged. No obvious intrasplenic lesions. No thrombosis of the splenic and portal veins. Superior mesenteric vein is also patent. ADRENALS: There are no significant adrenal masses. KIDNEYS:There is cysts in both kidneys. Largest cyst in the right kidney measures 3.2 by 2.4 cm. Largest cyst in the left kidney measures 1.8 x 1.6 cm. No solid renal masses. No calculi. No hydronephrosis. There is a small cyst off the inferior medial left kidney which measures 11 x 10 millimeters. This contains a single tiny mural calcification.. ABDOMINAL AORTA: Abdominal aortic diameter upper normal. Mild arterial megaly of the common iliac arteries. No large aneurysms. Mild arterial megaly of the external iliac arteries. No aneurysms. LYMPH NODES:There is no retroperitoneal nor paraaortic adenopathy. ABDOMINAL WALL: There is a fat containing umbilical anterior abdominal wall hernia. This appears similar size to the previous but contains a small amount of fluid therein. No bowel loops. GI: There is no evidence of bowel obstruction, free air, nor abscess. Sigmoid diverticulosis without evidence of acute diverticulitis. PELVIS: GI: No evidence of appendicitis.No evidence of sigmoid diverticulitis. LYMPH NODES: There is no intrapelvic nor inguinal adenopathy. REPRODUCTIVE: Prostate gland is enlarged,. No obturator adenopathy. Seminal vesicles unremarkable. URINARY BLADDER: Urinary bladder wall is uniformly thickened but the bladder is not distended. No obvious mass nor calculi therein. OSSEOUS: No significant osseous lesions. Partial ankylosis of the SI joints. IMPRESSION: 1. Compared to the prior CT scan of January 2019, the main finding at present is acute pancreatitis with abundant peripancreatic streaking. Pancreatic duct is not dilated. No obvious pancreatic mass although there is increasing parenchymal calcification in the pancreatic head noted, some of this close to the intrahepatic CBD. Cannot exclude possibility that at least 1 of these may be a calculus in the lower CBD. Recommend MRCP. 2. Extensive sigmoid diverticulosis. No obvious acute diverticulitis (as was previously present in January 2019). 3. No appendicitis. 4. Enlarged prostate gland. Nondistended urinary bladder. Benign cysts in both kidneys but no hydronephrosis. Cysts in the liver as described above, slightly increased in size from the prior study. Small fat containing umbilical hernia. However there is a small amount of fluid in the a bili cul hernia which was not evident on the prior January 2019 study. There are no bowel loops within the hernia sac and no evidence of bowel obstruction. : 6Age: 65 Exam(s) PROCEDURE INFORMATION: Exam: CT Abdomen And Pelvis With Contrast Exam date and time: 12/15/2020 3:40 PM Age: 65 years old Clinical indication: Abdominal tenderness and fever TECHNIQUE: Imaging protocol: Computed tomography of the abdomen and pelvis with contrast. Radiation optimization: All CT scans at this facility use at least one of these dose optimization techniques: automated exposure control; mA and/or kV adjustment per patient size (includes targeted exams where dose is matched to clinical indication); or iterative reconstruction. Contrast material: L [id number]; Contrast volume: 100 ml; Contrast route: INTRAVENOUS (IV); COMPARISON: CT ABDOMEN PELVIS W 02/17/2019 6:57 PM FINDINGS: Liver: There are 2 cysts within the left hepatic lobe which have increased somewhat in size since the prior exam. The now measuring 1.7 cm in diameter. There is a 4 mm cyst within the right hepatic lobe. Gallbladder and bile ducts: Normal. No calcified stones. No ductal dilation. Pancreas: There are extensive peripancreatic inflammatory changes which are new since the prior study. No discrete pancreatic abscess or cyst formation is noted. Spleen: Normal. No splenomegaly. Adrenal glands: Normal. No mass. Kidneys and ureters: Bilateral simple renal cysts are present with the largest cyst on the right measuring up to 3.0 cm in diameter. Stomach and bowel: Diverticulosis of the colon is present. Appendix: The appendix is well-visualized and appears normal. Intraperitoneal space: Unremarkable. No free air. No significant fluid collection. Vasculature: Unremarkable. No abdominal aortic aneurysm. Lymph nodes: Unremarkable. No enlarged lymph nodes. Urinary bladder: Unremarkable as visualized. Reproductive: The prostate appears enlarged measuring 5.9 cm in transverse diameter. Bones/joints: Unremarkable. No acute fracture. Soft tissues: There is a small fat containing umbilical hernia. IMPRESSION: 1. Peripancreatic inflammatory changes consistent with acute pancreatitis. The CT severity index is a 3 (mild). 2. Interval increase in size of cysts of the left hepatic lobe now measuring up to 1.7 cm in diameter. 3. Bilateral simple renal cysts. 4. Diverticulosis. 5. Large prostate. 6. Small fat containing umbilical hernia. Exam(s) MR ABDOMEN WO EXAM: MR ABDOMEN WO CLINICAL HISTORY: MRCP study for acute pancreatitis - ?[facility] TECHNIQUE: Multiplanar multisequence noninfused MRI was performed. MRCP also performed. COMPARISON: CT CT ABDOMEN PELVIS W from 12/15/2020 FINDINGS: VISUALIZED LUNG BASES: Small pleural effusions. Small amount of ascites noted perihepatic and perisplenic LIVER: Steatosis. Two adjacent benign cysts in the left hepatic lobe noted. Another tiny cyst in left hepatic lobe noted and there is a tiny cyst in the right hepatic lobe also evident measuring 4 millimeters. Also another tiny subcapsular cyst in the right hepatic lobe measuring 3 millimeters. BILIARY: There is no obvious gallbladder pathology. No gallstones noted. No gallbladder wall edema.Flow fluid around the gallbladder is related to the pancreatitis. CBD is not dilated PANCREAS: Pancreatitis. The pancreatic duct is not dilated. Peripancreatic fluid but no formed pseudocyst. No obvious pancreatic head mass. Previously described parenchymal calcifications in the pancreatic head are not easily seen on MRI due to signal dropout and are more readily seen on CT scan. MRCP:CBD is not dilated. No obvious calculus in the CBD. SPLEEN: Spleen is not enlarged and there are no intrasplenic lesions. ADRENALS: No significant adrenal masses. KIDNEYS: Benign cysts noted in both kidneys.No solid lesions. No hydronephrosis. ABDOMINAL AORTA: Not enlarged and there is no significant para-aortic adenopathy. ANTERIOR ABDOMINAL WALL/GI: There is no evidence of significant anterior abdominal wall hernia in the field of view of this study.Is no evidence of obvious bowel obstruction. OSSEOUS: There are no lytic osseous lesions in the field of view of this study. IMPRESSION: 1. Findings are consistent with pancreatitis. Pancreatic duct is upper normal. There is no obvious mass in the pancreatic head. Calcifications described in the pancreatic head on the recent CT scan are not evident with in the nondilated CBD. Both the CBD and intrahepatic ducts are not dilated. Therefore these are most probably just independent increasing pancreatic head parenchymal calcifications. 2. Hepatic steatosis. Benign cyst in the liver again noted. Also benign cysts in both kidneys. No solid renal masses. No hydronephrosis. 3. Mild ascites. Small pleural effusions Exam(s) XR PORTABLE CHEST AP EXAM: XR PORTABLE CHEST AP CLINICAL HISTORY: fever. TECHNIQUE: 2D digital imaging was performed. COMPARISON: CR CHEST 2 VIEWS PA,LAT from 01/26/2013 FINDINGS: Heart size is upper normal. The mediastinum is not widened. Lungs are clear. No infiltrates nor obvious pleural effusions. No pulmonary edema. No pneumothorax. IMPRESSION: No acute pulmonary findings on this single AP portable view of the chest. : 1955ge: 65 Exam(s) PROCEDURE INFORMATION: Exam: XR Chest Exam date and time: 12/17/2020 4:13 PM Age: 65 years old Clinical indication: Other: Fever TECHNIQUE: Imaging protocol: XR of the chest. Views: 1 view. COMPARISON: CT CHEST FOR PULMONARY EMBOLUS 12/03/2015 6:10 PM FINDINGS: Lungs: Ill-defined hazy bibasilar opacities. Pleural spaces: No pneumothorax. No sizable pleural effusion. Heart/Mediastinum: Cardiomediastinal silhouette within normal limits. Bones/joints: No acute displaced fracture. IMPRESSION: Ill-defined hazy bibasilar opacities may represent atelectasis however pneumonia or developing pneumonia not excluded in the appropriate clinical setting. Exam(s) US ABDOMEN EXAM: US ABDOMEN CLINICAL HISTORY: fever TECHNIQUE: Ultrasound of complete upper abdomen performed using standard protocol. COMPARISON: US US ABDOMEN RENAL from 12/25/2019 FINDINGS: There is no ascites evident. LIVER: Liver is hyperechoic indicating steatosis. There are 2 adjacent cystic structures in the left hepatic lobe, correspond to what is recently seen on CT scan. The larger of the 2 measures approximately 2 cm diameter. These have the appearance of slightly complex but benign appearing cysts GALLBLADDER/BILIARY: There are no gallstones. No gallbladder wall edema nor pericholecystic fluid. The common hepatic duct isnot dilated, measuring 3-4mm at the level of zayra hepatis. PANCREAS: There is no evidence of pancreatic mass nor dilatation of the pancreatic duct. SPLEEN: The spleen is not enlarged and there are no intrasplenic lesions evident. KIDNEYS:The 2.6 x 2.5 cm cyst in the right kidney. No cysts evident in the left kidney. Corticomedullary differentiation is maintained both kidneys no calculi nor hydronephrosis. No cortical cysts evident. ABDOMINAL AORTA: Not seen due to overlying bowel gas IVC: Normal diameter where visualized. IMPRESSION: 1. No evidence of cholelithiasis nor dilatation of the biliary tree. 2. Hepatic steatosis and benign cystic structures in the liver parenchyma again noted. 3. Renal cysts as described above. There is no ascites. : 1955ge: 65 Exam(s) PROCEDURE INFORMATION: Exam: US Abdomen Complete Exam date and time: 12/18/2020 7:12 AM Age: 65 years old Clinical indication: Fever; Patient HX: Pancreatitis TECHNIQUE: Imaging protocol: Real-time ultrasound of the abdomen with image documentation. COMPARISON: SD US ABDOMEN RENAL 12/25/2019 7:05 AM FINDINGS: Liver: Liver is enlarged measuring 17.2 cm. Hepatic parenchyma is echogenic with coarsened echotexture. Low-attenuation hepatic lesions in the left hepatic lobe, the larger of which measures approximately 19 mm in maximum diameter, probably mildly complex hepatic cysts. Gallbladder: No gallstones. No significant gallbladder wall thickening. Negative sonographic Anne's sign. Common bile duct: No stones. No significant dilation. Pancreas: Echogenic appearance of the pancreas. Pancreatic evaluation is limited due to bowel gas. Right kidney: Right renal cyst measures 2.6 cm. No hydronephrosis. Left kidney: No mass. No hydronephrosis. Spleen: No splenomegaly. Aorta: Aorta is obscured by bowel gas. Inferior vena cava: No significant dilatation. IMPRESSION: 1. Echogenic hepatic parenchyma with mildly coarsened echotexture. This is nonspecific, but may be seen with hepatic steatosis. Some degree of underlying cirrhosis not excluded. 2. Low-attenuation hepatic lesions in the left hepatic lobe, the larger of which measures approximately 19 mm in maximum diameter, probably mildly complex hepatic cysts. 3. Echogenic appearance of the pancreas, not well evaluated due to bowel gas. May be related to pancreatitis seen on recent CT from 12/15/2020. Labs on day of discharge: Labs from last 24 hours 12/19/20 12/19/20 12/19/20 06:45 06:45 06:45 WBC 11.43 H RBC 3.51 L Hgb 11.9 L Hct 34.9 L MCV 99.4 H MCH 33.9 H MCHC 34.1 RDW 12.6 Plt Count 189 MPV 9.1 Immature Gran % 0.8 Neutrophils % 79.4 Lymphocytes % 8.9 Monocytes % 10.2 Eosinophils % 0.5 Basophils % 0.2 Nucleated RBC % 0 Absolute Neutrophils 9.08 H Absolute Lymphocytes 1.02 L Absolute Monocytes 1.17 H Absolute Eosinophils 0.06 Absolute Basophils 0.02 Sodium 138 Potassium 3.6 Chloride 104 Carbon Dioxide 23.0 Anion Gap 11.0 BUN 6 L Creatinine 0.9 Estimated GFR/1.73 m2 >= 60.00 Glucose 99 Calcium 8.5 Magnesium 1.9 Total Bilirubin 1.1 H Conjugated Bilirubin 0.4 H AST 15 ALT 17 Alkaline Phosphatase 57 C-Reactive Protein 22.84 H Total Protein 6.3 L Albumin 2.7 L Lipase 1155 H Procalcitonin 0.3 Preliminary micro results at discharge 12/17/20 16:27 Blood Culture - Preliminary Blood NO GROWTH 24 HOURS 12/17/20 16:20 Blood Culture - Preliminary Blood NO GROWTH 24 HOURS PFSH Medical History Essential hypertension H/O factor V Leiden mutation Macrocytic anemia Pulmonary embolism Pulmonary emphysema Smoker Social History Smoking/Tobacco Use Status: Former Tobacco Use Smoking risk assessment performed?: Yes Alcohol Intake: current Alcohol Intake frequency: 3 or more drinks per day Alcohol type: beer, wine and hard liquor Drug use: Daily Substance use type: marijuana Do you feel safe at home: Yes Do you feel safe in your relationship?: Yes
--- NOTE | 2020-12-19 16:56 | PDOC.CMDIS ---
- If Service Date Differs Date of service: 12/19/20 Time of Service: 16:56 LACE Index Scoring Tool - Questions: Length of Stay (in days): 4 - 6 Acuity (Admit via E.D.?): Yes Comorbidities: Chronic Pulmonary Disease E.D. Visits: 1 - Answers: Total Score: 10 Risk of Readmission: High Risk Care Management Discharge Reason for Hospitalization: pancreatitis Discharge Plan: Discharge home with no new services via private vehicle with . Follow plan of discharge which includes completing the course of antibiotics, repeat labs in 1 week and following up with your PCP in 2 weeks. Patient/Family Education Needs: Review discharge instructions, medications and plan to follow up with community providers. ask me three.
== END 2020-12-19 14:26 | disposition home or self-care (01) | DRG 438 ==
LOC: ER 18:21 → MS 20:14
PROVIDERS: Internal Medicine; Nurse Practitioner Family; Admitting Provider Family Medicine; Emergency Provider Emergency Medicine; Visit Provider Family Medicine
DX: K85.21 Alcohol induced acute pancreatitis with uninfected necrosis (principal); J69.0 Pneumonitis due to inhalation of food and vomit; D68.51 Activated protein C resistance; R18.8 Other ascites; Z79.01 Long term (current) use of anticoagulants; Z20.822 Contact with and (suspected) exposure to COVID-19; F10.10 Alcohol abuse, uncomplicated; Z86.711 Personal history of pulmonary embolism; N40.0 Benign prostatic hyperplasia without lower urinary tract symptoms; Z87.891 Personal history of nicotine dependence; F12.90 Cannabis use, unspecified, uncomplicated; I10 Essential (primary) hypertension; D53.9 Nutritional anemia, unspecified; J43.9 Emphysema, unspecified; K76.0 Fatty (change of) liver, not elsewhere classified; K76.89 Other specified diseases of liver; E83.42 Hypomagnesemia
CPT/HCPCS: 36415; 80048; 80053; 80061; 80076; 83690; 84145; 87040; 87081; 87635; 93005; 94640; 96361; 96365; 96375; 96376; 99285; 71045; 74177; 74181; 76700; 81003; 81015; 82607; 82746; 83605; 83735; 85025; 85610; 85730; 86140; 93010; 99222; 99232; 99233; 99239; J0295; J2060; J2405; J3490

== ENCOUNTER 2020-12-27 03:51 | Outpatient (CLI) | payer OTHER, SELFPAY ==
[2020-12-27 11:52] LABS: Abs Immature Grans 0.13 10^3/uL (0.0-0.06); Absolute Basophil Count 0.03 10^3/uL (0.0-0.2); Absolute Eosinophil Count 0.12 10^3/uL (0.0-0.7); Absolute Lymphocyte Count 1.93 10^3/uL (1.2-3.4); Absolute Monocyte Count 0.79 10^3/uL (0.1-0.8); Absolute Neutrophil Count 4.67 10^3/uL (1.2-6.7); Basophils % 0.4; Eosinophils % 1.6; HCT 41.8 % (40.0-50.0); HGB 13.9 g/dL (13.5-17.5); Immature Grans % 1.7; Lymphocytes % 25.2; MCH 33.3 pg (27.0-33.0); MCHC 33.3 % (32.0-36.0); MPV 9.1 fL (8.0-11.0); Monocytes % 10.3; Neutrophils % 60.8; Nucleated RBC 0 %; Platelet Count 520 10^3/uL (130-400); RBC 4.18 10^6/uL (4.36-5.78); RDW 12.8 % (11.8-14.1); RDW-SD 47.5 fL; WBC 7.67 10^3/uL (4.4-10.8)
[2020-12-27 12:28] LABS: Procalcitonin < 0.1 ng/mL
[2020-12-27 12:39] LABS: ALT 31 U/L (16-63); AST 22 U/L (15-37); Albumin 3.2 g/dL (3.4-5.0); Alkaline Phosphatase 86 U/L (46-116); Anion Gap 11.5 mmol/L (3-11); BUN 5 mg/dL (7-18); Bilirubin, Total 0.4 mg/dL (0.2-1.0); C-Reactive Protein 4.38 mg/dL (0.0-0.3); CO2 23.5 mmol/L (21.0-32.0); CREATININE 1.3 mg/dL (0.70-1.30); Calcium 8.8 mg/dL (8.5-10.1); Chloride 105 mmol/L (98-107); Glucose 117 mg/dL (74-106); Potassium 4.4 mmol/L (3.5-5.1); Sodium 140 mmol/L (136-145); Total Protein 7.2 g/dL (6.4-8.2)
== END 2020-12-27 03:52 | disposition home or self-care (01) ==
PROVIDERS: Visit Provider Nurse Practitioner Family
DX: K85.21 Alcohol induced acute pancreatitis with uninfected necrosis (principal); K76.89 Other specified diseases of liver; J69.0 Pneumonitis due to inhalation of food and vomit; I10 Essential (primary) hypertension; D53.9 Nutritional anemia, unspecified
CPT/HCPCS: 36415; 80053; 84145; 85025; 86140

== ENCOUNTER 2021-03-03 01:53 | Outpatient (CLI) | payer OTHER, SELFPAY ==
--- NOTE | 2021-03-03 | DI.CT_ITS ---
Exam(s) CT ABDOMEN PELVIS W EXAM: CT ABDOMEN PELVIS W CLINICAL HISTORY: [place] AUTH# [id number] PANCREATITIS K85.90. TECHNIQUE: Imaging Protocol: Axial computed tomography images with coronal and sagittal reformatted images were created and reviewed CONTRAST MATERIAL: Intravenous: Omnipaque 100cc Oral: Yes. Oral contrast was administered for bowel opacification. COMPARISON: CT CT ABDOMEN PELVIS W from 12/15/2020 FINDINGS: VISUALIZED LUNG BASES: No nodules nor pleural effusions evident. ABDOMEN: There is no ascites. LIVER: The previously described benign cysts in the liver are basically unchanged and there are no ne w additional cysts nor solid hepatic lesions. No dilatation of intrahepatic. GALLBLADDER/BILIARY: Pharyngeal cap again noted. No calcified gallstones. No gallbladder wall edema . CBD is not dilated. PANCREAS: Parenchymal calcifications in the posterior aspect of the pancreatic head are again noted. There is now an abnormal fluid collection contiguous with the anterior aspect of the pancreatic head , this at site of prior streaking and consistent with post pancreatic development of a pseudocyst. T his is lobulated, measuring approximately 4 cm wide by 2.5 cm AP by 2.8 cm craniocaudal and is contig uous with the distal stomach-pylorus region. It is also adjacent to the gastroduodenal artery, howev er, there is no evidence of pseudoaneurysm of this vessel. No other pseudocyst evident. The pancrea tic duct is not dilated. SPLEEN: Spleen is not enlarged. No obvious intrasplenic lesions. Splenic and portal veins are paten t. ADRENALS: There are no significant adrenal masses. KIDNEYS:There is is a benign cyst in the lateral cortex of the right kidney measuring 3.2 x 2 0.3 cm. There is an exophytic 1 cm cyst off the medial aspect of the opposite-left kidney inferior pole reg ion. Slightly larger cyst is seen mid-upper pole left kidney measuring 1.8 x 1 0.6 cm. This no nahid d renal masses. No calculi. No hydronephrosis. No hydroureter. No calculi seen in the urinary da dder. Urinary bladder wall is uniformly thickened. . ABDOMINAL AORTA: Abdominal aorta is upper normal diameter.. There is mild arterial megaly of the com mon iliac arteries. Right common femoral artery is peripherally calcified and measures 1.6 cm. LYMPH NODES:There is no retroperitoneal nor paraaortic adenopathy. ABDOMINAL WALL: Anterior abdominal wall umbilical hernia is again noted. Adjacent small bowel loop n oted but without incarceration nor edema. There is no bowel obstruction. No colitis pattern GI: There is no evidence of bowel obstruction, free air, nor abscess. PELVIS: GI: No evidence of appendicitis.Extensive sigmoid diverticulosis but no obvious diverticulitis. LYMPH NODES: There is no intrapelvic nor inguinal adenopathy. REPRODUCTIVE: Enlarged prostate. No obturator adenopathy. URINARY BLADDER: No calculi nor obvious masses evident OSSEOUS: No significant osseous lesions. Ankylosis of the sacroiliac joints again noted. IMPRESSION: 1. Compared to the prior CT scan of 12/15/2020 there is less evidence of acute pancreatitis at this t saleem but there is now a lobulated pseudocyst anterior to the pancreatic head measuring approximately 4 x 2.5 x 2.8 cm, this contiguous with the gastric pylorus. No other pseudocyst are seen. Pancreatic duct is not dilated. 2. Benign cysts again noted in the liver and kidneys. No solid masses. 3. Extensive sigmoid diverticulosis. No evidence of acute diverticulitis. 4. Enlarged prostate gland again noted. No intrapelvic adenopathy. 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 RADIATION DOSE DELIVERED: 987.54mGy.cm Total DLP DATA REPOSITORY: All CT scans at this facility are submitted to the National Radiology Data Registry (NRDR) Dose Index Registry (DIR) with the [employer] (ACR). RADIATION OPTIMIZATION: All CT scans at this facility use at least one of these dose optimization te chniques: automated exposure control; mA and/or kV adjustment per patient size (includes targeted exa ms where dose is matched to clinical indication); or iterative reconstruction.
[2021-03-03] MEDS: Omnipaque 350 MG/ML 50 ML BTL PO (08:32)
[2021-03-03] MEDS: Breeza Beverage 473 ML BTL PO ×2 (08:33)
[2021-03-03] MEDS: Omnipaque 350 MG/ML 100 ML BTL IJ (09:06)
== END 2021-03-03 02:13 ==
PROVIDERS: PCP Nurse Practitioner Primary Care; Visit Provider Internal Medicine Gastroenterology
DX: K85.90 Acute pancreatitis without necrosis or infection, unspecified (principal); K86.2 Cyst of pancreas; K76.89 Other specified diseases of liver; N28.1 Cyst of kidney, acquired; N40.0 Benign prostatic hyperplasia without lower urinary tract symptoms; K57.30 Diverticulosis of large intestine without perforation or abscess without bleeding
CPT/HCPCS: 74177; J3490; Q9967

== ENCOUNTER 2023-04-14 21:34 | Emergency (ER) | payer OTHER, MEDICARE, SELFPAY ==
[2023-04-14 21:36] VITALS: BP 152/93; PULSE 74; RESP 16; TEMP 36.4; O2SAT 98
[2023-04-14 21:58] VITALS: RESP 16
--- NOTE | 2023-04-14 22:31 | ED.GENADUL_ITS ---
HPI General Date/Time Provider Initiated Documentation: 04/14/23 21:40 . HPI Narrative: 67-year-old male with a past medical history of factor V Leiden mutation, DVT, PE, currently on Eliquis who is compliant with this, high cholesterol, who presents today for evaluation of pain at the MCP on great toe of the right foot. Patient states that it started about a day and a half ago. He denies any injury, trauma, excessive use or excessive walking. He states that it has been mildly tender to the touch. Is been localized just at the joint. He states that his diet consists of a large amount of meats, jerky, and cheeses. He denies any fever or chills. He denies any calf swelling or tenderness. He denies any numbness or tingling. No other complaints at this time. No other modifying factors. Related Data Home Medications Medication Instructions Recorded Confirmed furosemide 20 mg tablet (Lasix) 20 mg PO BID 10/02/17 04/14/23 tiotropium bromide 2.5 2 puff inhalation DAILY 01/28/20 04/14/23 mcg/actuation mist for inhalation apixaban 2.5 mg tablet (Eliquis) 2.5 mg PO BID 04/01/20 04/14/23 rosuvastatin 5 mg tablet (Crestor) 5 mg PO DAILY 04/01/20 04/14/23 tamsulosin 0.4 mg capsule (Flomax) 0.4 mg PO DAILY #90 caps 04/01/20 04/14/23 folic acid 1 mg tablet 1 mg PO QAM #30 tabs 12/19/20 04/14/23 pantoprazole 20 mg tablet,delayed 40 mg PO Q24H PRN 01/10/21 04/14/23 release (Protonix) cholecalciferol (vitamin D3) 10 10 mcg PO DAILY 01/09/22 04/14/23 mcg (400 unit) capsule Previous Rx's Medication Instructions Recorded tamsulosin 0.4 mg capsule (Flomax) 0.4 mg PO DAILY #90 caps 04/01/20 folic acid 1 mg tablet 1 mg PO QAM #30 tabs 12/19/20 Allergies Allergy/AdvReac Type Severity Reaction Status Date / Time Sulfa (Sulfonamide Allergy Severe Unverified 04/14/23 21:42 Antibiotics) General Stated Complaint: Vascular NATASHA: 3 Review of Systems All systems reviewed & are unremarkable except as noted in HPI and below Exam Narrative Exam Narrative: 1.Const: Well-nourished, Well-developed, appearing stated age 2.Eyes: PERRL, no conjunctival injection, and symmetrical lids. 3.ENT: Atraumatic external nose and ears. Moist MM. Neck: Symmetric, trachea midline, No thyromegaly. 4.CVS: +S1/S2, No murmurs or gallops. Peripheral pulses 2+ and equal in all extremities. Brisk capillary refill in all extremities. 5.RESP: Unlabored respiratory effort. Clear to auscultation bilaterally. No wheezes rales or rhonchi 6.GI: Soft, Nontender/Nondistended, No hepatosplenomegaly. No guarding or rebound. 7.MSK: Normocephalic. Right foot demonstrates mild redness and swelling over the MTP joint of the great toe. No spreading redness proximally. No lesions. No tenderness over the other toes. No bleeding. No excessive warmth. Mild tenderness on palpation around the joint with redness exists. No calf tenderness. Negative Homans' sign. 8.Skin: Warm, Dry. No rashes or lesions. 9.Neuro: pie topper II-XII grossly intact. Sensation grossly intact, no focal neurologic deficits. 10.Psych: (AAO) x3. Appropriate mood and affect Course Vital Signs Vital signs: Vital Signs Temperature 36.4 C L 04/14/23 21:36 Pulse 74 04/14/23 21:36 Respiratory Rate 16 04/14/23 21:36 Blood Pressure 152/93 H 04/14/23 21:36 Pulse Oximetry 98 04/14/23 21:36 Temperature 36.4 C L 04/14/23 21:36 Temperature Source Skin 04/14/23 21:36 Pulse 74 04/14/23 21:36 Respiratory Rate 16 04/14/23 21:58 Respiratory Effort Normal, Non-Labored 04/14/23 21:58 Respiratory Depth Normal 04/14/23 21:58 Respiratory Pattern Normal 04/14/23 21:58 Blood Pressure 152/93 H 04/14/23 21:36 Blood Pressure Position Sitting 04/14/23 21:36 Pulse Oximetry 98 04/14/23 21:36 Oxygen Delivery Method Room Air 04/14/23 21:36 Oxygen Flow Rate 0 04/14/23 21:36 Pain Level 6 04/14/23 21:53 Medical Decision Making 67-year-old male with a past medical history of factor V Leiden mutation, DVT, PE, currently on Eliquis who is compliant with this, high cholesterol, who presents today for evaluation of pain at the MCP on great toe of the right foot. Patient states that it started about a day and a half ago. He denies any injury, trauma, excessive use or excessive walking. He states that it has been mildly tender to the touch. Is been localized just at the joint. He states that his diet consists of a large amount of meats, jerky, and cheeses. He denies any fever or chills. He denies any calf swelling or tenderness. He denies any numbness or tingling. No other complaints at this time. No other modifying factors.' Exam demonstrates mild swelling and tenderness and minimal redness over the MTP joint of the great toe on the right foot. No signs of trauma otherwise. No other redness, no spreading of the redness. No calf tenderness. No other abnormality otherwise. Limited bedside ultrasound was performed and demonstrate s no evidence of DVT. Symptoms appear consistent with episode of gout. Discussed options for blood work, patient would like to hold off at this time and do that at the [facility]. Discussed options of x-ray, and patient would also like to hold off at this time. He has had no trauma, and fractures notably less likely. At this time we will continue with the presumptive diagnosis of gout attack secondary to his age, the attacks location, and his diet and the clinical symptomatology and exam findings. Will recommend Voltaren gel, 1000 mg of Tylenol every 6 hours and notable diet change. Discussed with the patient that if he fails this therapy and does not improve then he will need other additional medications. Patient has declined any steroids at this time. [facility]. Discussed red flags for which to return. I have extensively reviewed the treatment plan and discharge instructions with the patient. I have addressed all patient concerns at this time. The patient was made aware of what symptoms to monitor for that would warrant a return to the emergency department. Discussed the plan with the patient, they demonstrate verbal understanding and agreement with our assessment and plan at this time. The documentation in this chart was dictated using [employer] dictation software. Please excuse any dictation errors. Quality:SDOH Health Related Social Needs: No Data to Display PFSH All Active Problems Gouty arthritis of right great toe (Acute) Liver cyst (Acute) Aspiration pneumonia due to vomit (Acute) Discharge planning issues (Acute) H/O factor V Leiden mutation (Chronic) Macrocytosis (Acute) Alcohol abuse (Chronic) Urinary retention due to benign prostatic hyperplasia (Acute) Hypercholesterolemia (Chronic) Elevated PSA (Chronic) Elevated PSA of 6.9. Tobacco dependence (Chronic) Idiopathic urticaria (Chronic) oN CHRONIC ANTIHISTAMINE THERAPY. Atypical chest pain (Chronic) Medical History Smoker Pulmonary embolism Pulmonary emphysema Essential hypertension Macrocytic anemia Social History Smoking/Tobacco Use Status: Former Tobacco Use Smoking risk assessment performed?: Yes Alcohol Intake: current Alcohol Intake frequency: 3 or more drinks per day Alcohol type: beer, wine and hard liquor Drug use: Daily Substance use type: marijuana Housing: house Do you feel safe at home: Yes Do you feel safe in your relationship?: Yes Discharge Plan Disposition Patient Disposition: Home Discharge Details Clinical Impression: Gouty arthritis of right great toe Primary Care Provider: [place],Local ED Provider: Russell Vasquez [place] Meds and New Rx's Prescriptions: No Action pantoprazole [Protonix] 20 mg tablet,delayed release (DR/EC) 40 mg PO Q24H PRN Eliquis 2.5 mg tablet 2.5 mg PO BID tamsulosin [Flomax] 0.4 mg capsule 0.4 mg PO DAILY Qty: 90 3RF cholecalciferol (vitamin D3) 10 mcg (400 unit) capsule 10 mcg PO DAILY furosemide [Lasix] 20 MG tablet 20 mg PO BID tiotropium bromide 2.5 mcg/actuation mist 2 puff inhalation DAILY rosuvastatin [Crestor] 5 mg tablet 5 mg PO DAILY folic acid 1 mg Tablet 1 mg PO QAM Qty: 30 0RF Discharge Instructions Instructions: Gout (ED) Additional Instructions: At this time your exam demonstrates evidence consistent with gout. Because of your Eliquis he cannot take Motrin, please take 1000 mg of Tylenol every 6 hours for the next few days. This is the maximum dose. Please apply the diclofenac gel 3-4 times per day. Please avoid extreme cold on your foot as this can make it worse. Please try to bear less weight on your foot over the next few days to help it heal. As we discussed together, is a critical component to management of this. Please avoid meats, red meats, preserved meats, cheeses, preserve cheeses, caviar etc. while suffering from this flare. Please follow-up closely with your primary care provider at the [facility]. If you have continued pain in spite of the therapy and diet changes you may need x-ray and further blood work. If you notice any worsening of your symptoms, or any new symptoms such as vomiting, diarrhea, fever, chills, shortness of breath, chest pain, numbness, weakness, or fainting , please return immediately to the emergency department for reevaluation. Please follow up with your primary care provider as soon as possible for reassessment and reevaluation. As always, it was a pleasure participating in your medical care today. POCUS Exam (ED) Limited Vascular Exam DATE OF EXAM: 04/14/23 TIME OF EXAM: 22:36 PROVIDER THAT PERFORMED THE STUDY: Russell Vasquez IS THIS A REPEAT EXAM DURING THIS ENCOUNTER: No Vascular Exam: Right lower extremity REASON FOR EXAM: Concern for DVT right lower extremity Exam Complete DIFFERENTIAL DIAGNOSES: No evidence of DVT or other abnormality on vascular exam
[2023-04-14 22:35] VITALS: BP 152/93; PULSE 74; RESP 16; TEMP 36.4; O2SAT 98
== END 2023-04-14 22:35 | disposition home or self-care (01) ==
PROVIDERS: Emergency Provider Student in an Organized Health Care Education/Training Program
DX: M10.9 Gout, unspecified (principal); D68.51 Activated protein C resistance; Z79.01 Long term (current) use of anticoagulants; Z86.711 Personal history of pulmonary embolism; Z86.718 Personal history of other venous thrombosis and embolism; Z87.891 Personal history of nicotine dependence
CPT/HCPCS: 93971; 99284